=== PATIENT | female | born 1990 | race American Indian/Alaskan Native ===

== ENCOUNTER 2016-10-23 06:48 | Day surgery (SDC) | payer BC ==
[2016-10-23] MEDS ORDERED: NACL 0.9% 500 ML 500 ML IV SCH (08:00)
[2016-10-23] MEDS ORDERED: ATROPINE 0.1% (CARDIAC) ONE ×2 (08:30→08:31)
[2016-10-23] MEDS: NITROSTAT SL ONE ×2 (08:36→08:46)
--- NOTE | 2016-10-23 08:55 | Short Stay Summary ---
Short Stay Documentation Date of service: 10/23/16 - History H&P: obtained from office - Allergies and Medications Current Medications: Allergies No Known Allergies Allergy (Verified 09/06/15 09:17) Home Medications Medication Instructions Recorded Confirmed Last Taken Type Ibuprofen [Motrin 800 MG tab] 800 mg PO Q8HR PRN #30 tablet 09/06/15 Unknown Rx Acetaminophen with Codeine 1 each PO Q6HR PRN #12 tablet 04/07/16 Unknown Rx [Acetaminophen-Codeine #2 TAB] Sulfamethoxazole/Trimethoprim 1 each PO BID #28 tablet 04/07/16 Unknown Rx [Bactrim DS TAB] Active Medications Sodium Chloride (Nacl 0.9% 500 Ml) 500 mls @ 50 mls/hr IV DIRECT YAO - Physical exam General appearance: no acute distress Integumentary: no rash HEENT: Atraumatic Lungs: Clear to auscultation Breasts: deferred Heart: Regular rate Gastrointestinal: normal Female Genitourinary: deferred Rectal Exam: deferred Extremities: no ischemia Neurological: Normal gait - Brief post op/procedure progress note Date of procedure: 10/23/16 Pre-op diagnosis: Syncope Post-op diagnosis: same Procedure: Tilt table test Anesthesia: none Findings: Test was non-diagnostic. Patient insisted that she wants to be layed down before the time was up due to feeling of lightheadedness and nausea. She started to unstrap herself off the tilt table test. To prevent injury, we had to put her back down. Surgeon: ALYSSA ALCALA Estimated blood loss: none Pathology: none Condition: stable - Hospital course Hospital course: Uneventful - Disposition Condition at discharge: Good Disposition: DISCHARGED TO HOME OR SELFCARE Short Stay Discharge Plan Activity: advance as tolerated Weight Bearing Status: Full Weight Bearing Diet: regular Follow up with: PRIMARY CARE, [Primary Care Provider] - 7 Days
[2016-10-23 09:38] VITALS: BP 111/57
--- NOTE | 2016-10-23 10:01 | Procedure Note ---
TILT TABLE TEST INDICATION: Syncope. ORDERING PHYSICIAN: Seven Alfaro M.D. DESCRIPTION OF PROCEDURE: After obtaining written consent, the patient was brought to the blood bank laboratory technologist area. The patient was securely strapped to the tilt table test. Her supine blood pressure was 120/66 with a supine heart rate of 48 beats per minute. The patient was then tilted to 85 degrees from horizontal. Immediately after tilting, her blood pressure was 127/76 with a heart rate of 47 beats per minute. The patient was kept in this upright position for 10 minutes, at the end of which her blood pressure was 116/64 with a heart rate of 67 beats per minute. The patient was subsequently given 0.4 mg of sublingual nitroglycerin. The patient's heart rate gradually increased to 108 beats per minute, sinus tachycardia. The patient started complaining of feeling nauseous and lightheaded and insisted on being returned back to horizontal. The patient unfortunately started to unstrap herself from the tilt table test and we had to return her to a horizontal position in self protection and in order to avoid injury. The patient did not lose consciousness. The patient's maximum recorded heart rate was 108 beats per minute. The patient's last blood pressure recorded before she was tilted back to horizontal was 136/91. The patient was tilted back to horizontal. Her heart rate went back to baseline, which is 47 beats per minute. Her lowest recorded blood pressure was 89/52 which spontaneously recovered to 98/63. The patient did not lose consciousness during this procedure. A note is made that the patient PVCs were suppressed at the high heart rate. The patient did have several PVCs and bigemines. She did have fusion beats, as well as premature ventricular contractions. IMPRESSION: This is a nondiagnostic tilt table test. The patient insisted on moving back to a horizontal position after she started feeling lightheaded and nauseous. Her maximum recorded heart rate after nitroglycerin was 108 beats per minute. There was no evidence of sustained arrhythmias or bradycardias. The patient did, however, have multiple PVCs and bigeminies at rest that were suppressed at a higher heart rate. The patient's lowest recorded blood pressure was 89/52 and this was recorded after she was tilted back to horizontal and this is spontaneously recovered to 98/63. RECOMMENDATION: Follow up with referring fire boss. [facility]# [id number] TARIQ/JIMENA
== END 2016-10-23 10:00 | disposition home or self-care (01) ==
LOC: OPU 06:48
PROVIDERS: ATTEND Internal Medicine
DX: R55 Syncope and collapse (principal); I48.0 Paroxysmal atrial fibrillation
CPT/HCPCS: 36415; 81025; 84703; 93660; J0461; J7040

== ENCOUNTER 2016-10-29 02:01 | Emergency (ER) | payer BC ==
[2016-10-29 02:22] VITALS: BP 107/60
== END 2016-10-29 04:26 | disposition left against medical advice (07) ==
LOC: ED 02:01
DX: R55 Syncope and collapse (principal); D64.9 Anemia, unspecified; W18.30XA Fall on same level, unspecified, initial encounter; Y93.89 Activity, other specified; Y99.9 Unspecified external cause status; Y92.89 Other specified places as the place of occurrence of the external cause; Z53.21 Procedure and treatment not carried out due to patient leaving prior to being seen by health care provider
CPT/HCPCS: 93005; 93010

== ENCOUNTER 2016-10-30 02:28 | Emergency (ER) | payer BC ==
[2016-10-30 03:29] LABS: Basophils % (Auto) 0.7 % (0.0-1.8); Eosinophils % (Auto) 2.1 % (0.0-4.3); Hematocrit 37.5 % (30.3-42.9); Hemoglobin 12.6 gm/dl (10.1-14.3); Mean Corpuscular HGB Conc 34 % (30-34); Mean Corpuscular Hemoglobin 30 pg (28-32); Mean Corpuscular Volume 90 fl (79-97); Platelet Count 221 K/mm3 (140-440); Red Blood Count 4.16 M/mm3 (3.65-5.03); Red Cell Distribution Width 14.5 % (13.2-15.2); White Blood Count 6.5 K/mm3 (4.5-11.0)
[2016-10-30 03:51] LABS: Anion Gap 15 mmol/L; Blood Urea Nitrogen 10 mg/dL (7-17); Calcium 8.9 mg/dL (8.4-10.2); Carbon Dioxide 26 mmol/L (22-30); Chloride 102.7 mmol/L (98-107); Glucose 99 mg/dL (65-100); Potassium 3.8 mmol/L (3.6-5.0); Sodium 140 mmol/L (137-145)
[2016-10-30 04:27] LABS: Creatine Kinase MB 1.3 ng/mL (0.0-4.0)
[2016-10-30 04:29] LABS: Alanine Aminotransferase 26 units/L (7-56); Albumin 4.1 g/dL (3.9-5); Albumin/Globulin Ratio 1.6 %; Alkaline Phosphatase 69 units/L (35-129); Bilirubin,Total 0.4 mg/dL (0.1-1.2); Total Protein 6.6 g/dL (6.3-8.2)
[2016-10-30 04:44] LABS: Bilirubin,Direct < 0.2 mg/dL (0-0.2); Bilirubin,Indirect 0.2 mg/dL
[2016-10-30 05:24] LABS: Bacteria,Urine 1+ /HPF (Negative); Bilirubin,Urine NEG (Negative); Blood,Urine SM (Negative); Ketones,Urine TR mg/dL (Negative); Leukocyte Esterase,Urine MOD (Negative); Mucus,Urine 3+ /HPF; Nitrite,Urine NEG (Negative); Urobilinogen,Urine < 2.0 mg/dL (<2.0)
[2016-10-30] MEDS ORDERED: NACL 0.9% 1000 ML 1,000 ML IV ONE (10:04)
--- NOTE | 2016-10-30 10:09 | Emergency Department Report ---
ED Syncope HPI - General Chief Complaint: Syncope Stated Complaint: SYNCOPAL EPISODE Time Seen by Provider: 10/30/16 09:48 Source: patient, family Exam Limitations: no limitations - History of Present Illness Initial Comments: 26-year-old female presents to the emergency department after a syncopal episode. Patient states that she was sitting, watching TV at 1 AM when she began feeling lightheaded and subsequently lost consciousness. Family states the patient was unconscious for approximately 1 minute. At this time, patient denies complaints. She denies chest pain, palpitations, or difficulty breathing prior to passing out. Patient states this happened to her multiple times over the past couple of years. Family states that the episodes have become more frequent over the past month. Patient is being followed by [facility]. There are no other complaints. Timing/Prior Episodes: single episode today, recent history Precipitating Factors: Positive: lightheadedness Context: sitting Loss of Consciousness: prolonged (minutes) (1) Current Symptoms: back to normal - Related Data Allergies/Adverse Reactions: Allergies No Known Allergies Allergy (Verified 10/29/16 02:19) Home Medications: Ambulatory Orders Ibuprofen [Motrin 800 MG tab] 800 mg PO Q8HR PRN #30 tablet 09/06/15 Acetaminophen with Codeine [Acetaminophen-Codeine #2 TAB] 1 each PO Q6HR PRN # 12 tablet 04/07/16 Sulfamethoxazole/Trimethoprim [Bactrim DS TAB] 1 each PO BID #28 tablet ED Review of Systems ROS: Stated complaint: SYNCOPAL EPISODE Other details as noted in HPI Comment: All other systems reviewed and negative Cardiovascular: syncope ED Past Medical Hx - Past Medical History Previous Medical History?: Yes Hx Hypertension: No Hx Congestive Heart Failure: No Hx Diabetes: No Hx Deep Vein Thrombosis: No Hx Renal Disease: No Hx Sickle Cell Disease: No Hx Seizures: No Hx Asthma: No Hx COPD: No Hx HIV: No Additional medical history: Irregular heartbeat--a fib. bradycardia. anemia - Surgical History Past Surgical History?: No - Family History Family history: no significant - Social History Smoking Status: Never Smoker Substance Use Type: None - Medications Home Medications: Home Medications Medication Instructions Recorded Confirmed Last Taken Type Ibuprofen [Motrin 800 MG tab] 800 mg PO Q8HR PRN #30 tablet 09/06/15 Unknown Rx Acetaminophen with Codeine 1 each PO Q6HR PRN #12 tablet 04/07/16 Unknown Rx [Acetaminophen-Codeine #2 TAB] Sulfamethoxazole/Trimethoprim 1 each PO BID #28 tablet 04/07/16 Unknown Rx [Bactrim DS TAB] ED Physical Exam - General Limitations: No Limitations General appearance: alert, in no apparent distress - Head Head exam: Present: atraumatic, normocephalic - Eye Eye exam: Present: normal appearance, PERRL, EOMI - ENT ENT exam: Present: normal exam, normal orophraynx, mucous membranes moist - Neck Neck exam: Present: normal inspection, full ROM. Absent: tenderness - Respiratory Respiratory exam: Present: normal lung sounds bilaterally. Absent: respiratory distress - Cardiovascular Cardiovascular Exam: Present: normal rhythm, bradycardia, normal heart sounds - GI/Abdominal GI/Abdominal exam: Present: soft, normal bowel sounds. Absent: distended, tenderness - Extremities Exam Extremities exam: Present: normal inspection, full ROM. Absent: tenderness - Back Exam Back exam: Present: normal inspection, full ROM. Absent: tenderness - Neurological Exam Neurological exam: Present: alert, oriented X3. Absent: motor sensory deficit - Skin Skin exam: Present: warm, dry, intact ED Course Vital Signs 10/30/16 10/30/16 10/30/16 02:57 07:00 07:13 Temperature 97.8 F Pulse Rate 18 L 39 L Respiratory 18 16 14 Rate Blood Pressure Blood Pressure 106/53 99/62 [Right] O2 Sat by Pulse 100 98 Oximetry 10/30/16 10/30/16 10/30/16 07:21 07:30 07:41 Temperature Pulse Rate 41 L 44 L 42 L Respiratory 14 22 12 Rate Blood Pressure 83/43 99/57 99/57 Blood Pressure [Right] O2 Sat by Pulse 99 100 100 Oximetry 10/30/16 10/30/16 07:51 08:00 Temperature Pulse Rate 44 L 45 L Respiratory 14 14 Rate Blood Pressure 100/59 100/50 Blood Pressure [Right] O2 Sat by Pulse 100 99 Oximetry ED Medical Decision Making - Lab Data Result diagrams: 10/30/16 03:19 10/30/16 03:19 - EKG Data -: EKG Interpreted by Co EKG shows normal: sinus rhythm, axis, intervals, QRS complexes, ST-T waves Rate: bradycardia - EKG Data When compared to previous EKG there are: no significant change Interpretation: unchanged when compared t (03/26/2012), other (sinus bradycardia ) - Medical Decision Making Laboratory results reviewed and discussed with the patient. I have spoken with Dr. Gomez, cardiology. He has seen the patient in the emergency department. The plan is to hydrate the patient with IV fluids and then discharged home to follow-up as an outpatient. This was discussed with the family, who agree. - Differential Diagnosis syncope, arrhythmia Critical care attestation.: If time is entered above; I have spent that time in minutes in the direct care of this critically ill patient, excluding procedure time. ED Disposition Clinical Impression: Syncope and collapse Disposition: DISCHARGED TO HOME OR SELFCARE Is pt being admited?: No Condition: Stable Instructions: Syncope (ED) Referrals: PRIMARY CARE, [Primary Care Provider] - 3-5 Days Time of Disposition: 11:40
--- NOTE | 2016-10-30 11:26 | Consultation ---
History of Present Illness Consult date: 10/30/16 Consult reason: syncope History of present illness: This is a 26yr old female who presents to the ED with recurrent syncope. Her presenting ECG shows a sinus bradycardia, rate 46. No arrhythmias noted. Noted hypotensive in the ED with a systolic BP of 83. She has no chest pain or shortness of breath. She denies palpitations. Cardiac consultation requested. Patient is [facility] to [facility]. Prior echocardiogram reveals a dilated LV with mildly depressed EF 45-50%. A week ago she had an outpatient tilt table test that was aborted due to patient complaint of nausea. At that time patient insisted to stop the test. She is now planned for an outpatient cardiac MRI. Medications and Allergies Allergies Allergy/AdvReac Type Severity Reaction Status Date / Time No Known Allergies Allergy Verified 10/29/16 02:19 Home Medications Medication Instructions Recorded Confirmed Last Taken Type Ibuprofen [Motrin 800 MG tab] 800 mg PO Q8HR PRN #30 tablet 09/06/15 Unknown Rx Acetaminophen with Codeine 1 each PO Q6HR PRN #12 tablet 04/07/16 Unknown Rx [Acetaminophen-Codeine #2 TAB] Sulfamethoxazole/Trimethoprim 1 each PO BID #28 tablet 04/07/16 Unknown Rx [Bactrim DS TAB] Physical Examination Vital Signs Temp Pulse Resp BP Pulse Ox 97.8 F 18 L 18 106/53 100 10/30/16 02:57 10/30/16 02:57 10/30/16 02:57 10/30/16 02:57 10/30/16 02:57 General appearance: no acute distress HEENT: Positive: PERRL Neck: Positive: trachea midline Cardiac: Positive: Bradycardia Results 10/30/16 03:19 10/30/16 03:19 Cardiac Enzymes 10/30/16 10/30/16 Range/Units 03:40 03:40 AST 21 (5-40) units/L CK-MB (CK-2) 1.3 (0.0-4.0) ng/mL CBC 10/30/16 Range/Units 03:19 WBC 6.5 (4.5-11.0) K/mm3 RBC 4.16 (3.65-5.03) M/mm3 Hgb 12.6 (10.1-14.3) gm/dl Hct 37.5 (30.3-42.9) % Plt Count 221 (140-440) K/mm3 Lymph # 1.6 (1.2-5.4) K/mm3 [place] # 0.5 (0.0-0.8) K/mm3 Eos # 0.1 (0.0-0.4) K/mm3 Baso # 0.0 (0.0-0.1) K/mm3 Comprehensive Metabolic Panel 10/30/16 10/30/16 Range/Units 03:19 03:40 Sodium 140 (137-145) mmol/L Potassium 3.8 (3.6-5.0) mmol/L Chloride 102.7 (98-107) mmol/L Carbon Dioxide 26 (22-30) mmol/L BUN 10 (7-17) mg/dL Creatinine 0.8 (0.7-1.2) mg/dL Glucose 99 (65-100) mg/dL Calcium 8.9 (8.4-10.2) mg/dL Direct Bilirubin < 0.2 (0-0.2) mg/dL Indirect Bilirubin 0.2 mg/dL AST 21 (5-40) units/L ALT 26 (7-56) units/L Alkaline Phosphatase 69 (35-129) units/L Total Protein 6.6 (6.3-8.2) g/dL Albumin 4.1 (3.9-5) g/dL EKG interpretations - EKG Sinus rhythms and dysrhythmias: sinus bradycardia Assessment and Plan Recurrent syncope Hypotension Sinus bradycardia Prior echocardiogram reveals a dilated LV with mildly depressed EF 45-50%. Recommendations: IV hydration. Outpatient cardiac MRI as scheduled. Ok for discharge home. Advised not to drive. F/U with Dr Alfaro as scheduled.
[2016-10-30 12:05] VITALS: BP 90/33
== END 2016-10-30 12:06 | disposition home or self-care (01) ==
LOC: ED 02:28
DX: R55 Syncope and collapse (principal)
CPT/HCPCS: 36415; 80048; 80074; 81001; 82550; 82553; 84484; 84703; 85025; 96360; 99284; J7030

== ENCOUNTER 2016-12-11 13:09 | Inpatient (IN) | payer BC ==
[2016-12-11] MEDS ORDERED: NACL 0.9% 1000 ML 1,000 ML IV ONE ×2 (13:15→15:04)
[2016-12-11] MEDS ORDERED: KEPPRA 1,000 MG/NS 0.75% 100ML 1,000 MG/100 ML BAG IV ONE (13:22)
--- NOTE | 2016-12-11 13:29 | Emergency Department Report ---
HPI - General Chief Complaint: Altered Mental Status Time Seen by Provider: 12/11/16 13:13 - HPI HPI: Room 20 The patient is a 26-year-old female presenting with a chief complaint of altered mental status. EMS reports the patient went to her cardiology appointment earlier today without incident. The patient returned home and the mother heard the patient fall bathroom. EMS reports that the mother heard snoring respirations from inside the bathroom so the mother broke the door down to gain entry. The patient was unresponsive per EMS. EMS states when they arrived and began transporting the patient she became combative so Haldol 5 mg IM and Benadryl was administered. During transport EMS reports the patient appeared to stiffen and her eyes exhibited a rightward gaze with nystagmus so there was concern for seizure activity. EMS states that admission 2 mg of Ativan IV at that time. EMS states patient has been nonverbal but combative during her transport. In the ED the patient is intermittently combative and nonverbal Location: Mental status Duration: [see above] Quality: Altered Severity: Moderate Modifying factors: [see above] Context: [see above] Mode of transportation: [not driving] ED Past Medical Hx - Past Medical History Additional medical history: Irregular heartbeat--a fib. bradycardia. anemia - Surgical History Past Surgical History?: No - Family History Family history: no significant - Social History Smoking Status: Unknown if ever smoked - Medications Home Medications: Home Medications Medication Instructions Recorded Confirmed Last Taken Type Ibuprofen [Motrin 800 MG tab] 800 mg PO Q8HR PRN #30 tablet 09/06/15 Unknown Rx Acetaminophen with Codeine 1 each PO Q6HR PRN #12 tablet 04/07/16 Unknown Rx [Acetaminophen-Codeine #2 TAB] Sulfamethoxazole/Trimethoprim 1 each PO BID #28 tablet 04/07/16 Unknown Rx [Bactrim DS TAB] ED Review of Systems ROS: Stated complaint: CONSUELO Other details as noted in HPI Comment: Unobtainable due to pts medical conditions Physical Exam - Physical Exam Vital Signs: Vital Signs 12/11/16 13:13 Pulse Rate 101 H Respiratory 26 H Rate O2 Sat by Pulse 100 Oximetry Physical Exam: GENERAL: The patient is well-developed well-nourished female appearing confused and combative requiring restraints on stretcher. [] HEENT: Normocephalic. Atraumatic. Pupils 4-2 mm bilaterally. Patient has moist mucous membranes. NECK: Supple. Trachea midline CHEST/LUNGS: Clear to auscultation. There is no respiratory distress noted. HEART/CARDIOVASCULAR: Regular. There is tachycardia. There is no gallop rub or murmur. ABDOMEN: Abdomen is soft, nontender. Patient has normal bowel sounds. There is no abdominal distention. SKIN: There is no rash. There is no edema. There is no diaphoresis. NEURO: The patient is combative and nonverbal. The patient appears she may potentially be postictal. Moves all extremities well MUSCULOSKELETAL: There is no evidence of acute injury. ED Course Vital Signs 12/11/16 13:13 Pulse Rate 101 H Respiratory 26 H Rate O2 Sat by Pulse 100 Oximetry ED Medical Decision Making - Lab Data Result diagrams: 12/11/16 15:20 12/11/16 13:14 Laboratory Tests 12/11/16 12/11/16 12/11/16 13:14 13:14 13:15 WBC RBC Hgb Hct MCV MCH MCHC RDW Plt Count Lymph % (Auto) [place] % (Auto) Eos % (Auto) Baso % (Auto) Lymph # [place] # Eos # Baso # Seg Neutrophils % Seg Neutrophils # PT INR APTT Chloride 101.6 Carbon Dioxide 13 L Anion Gap 30 BUN 12 Creatinine 1.1 Estimated GFR > 60 BUN/Creatinine Ratio 10.90 Glucose 220 H Calcium 8.8 Magnesium 1.90 Total Bilirubin 0.90 AST 143 H ALT 82 H Alkaline Phosphatase 74 Total Creatine Kinase 588 H CK-MB (CK-2) 4.4 H CK-MB (CK-2) Rel Index 0.7 Troponin T < 0.010 Total Protein 6.9 Albumin 4.2 Albumin/Globulin Ratio 1.6 TSH Free T4 HCG, Qual Urine Color Urine Turbidity Urine pH Ur Specific [place] Urine Protein Urine Glucose (UA) Urine Ketones Urine Blood Urine Nitrite Urine Bilirubin Urine Urobilinogen Ur Leukocyte Esterase Urine WBC (Auto) Urine RBC (Auto) U Epithel Cells (Auto) Urine Bacteria (Auto) Urine Mucus Urine Opiates Screen Urine Methadone Screen Ur Barbiturates Screen Ur Phencyclidine Scrn Ur Amphetamines Screen U Benzodiazepines Scrn Urine Cocaine Screen U Marijuana (THC) Screen Drugs of Abuse Note Plasma/Serum Alcohol < 0.01 12/11/16 12/11/16 12/11/16 13:37 13:37 13:50 WBC RBC Hgb Hct MCV MCH MCHC RDW Plt Count Lymph % (Auto) [place] % (Auto) Eos % (Auto) Baso % (Auto) Lymph # [place] # Eos # Baso # Seg Neutrophils % Seg Neutrophils # PT INR APTT Chloride Carbon Dioxide Anion Gap BUN Creatinine Estimated GFR BUN/Creatinine Ratio Glucose Calcium Magnesium Total Bilirubin AST ALT Alkaline Phosphatase Total Creatine Kinase CK-MB (CK-2) CK-MB (CK-2) Rel Index Troponin T Total Protein Albumin Albumin/Globulin Ratio TSH 1.520 Free T4 1.15 HCG, Qual Urine Color Yellow Urine Turbidity Slightly-cloudy Urine pH 6.0 Ur Specific [place] 1.020 Urine Protein >500 Urine Glucose (UA) 50 Urine Ketones Tr Urine Blood Sm Urine Nitrite Neg Urine Bilirubin Neg Urine Urobilinogen 2.0 Ur Leukocyte Esterase Neg Urine WBC (Auto) 26.0 H Urine RBC (Auto) 11.0 U Epithel Cells (Auto) 5.0 Urine Bacteria (Auto) 1+ Urine Mucus 2+ Urine Opiates Screen Presumptive negative Urine Methadone Screen Presumptive negative Ur Barbiturates Screen Presumptive negative Ur Phencyclidine Scrn Presumptive negative Ur Amphetamines Screen Presumptive negative U Benzodiazepines Scrn Presumptive negative Urine Cocaine Screen Presumptive negative U Marijuana (THC) Screen Presumptive positive Drugs of Abuse Note Disclamer Plasma/Serum Alcohol 12/11/16 12/11/16 12/11/16 13:50 15:20 15:20 WBC 10.3 RBC 3.61 L Hgb 11.5 Hct 32.5 MCV 90 MCH 32 MCHC 35 H RDW 14.4 Plt Count 206 Lymph % (Auto) 7.2 L [place] % (Auto) 5.9 Eos % (Auto) 0.2 Baso % (Auto) 0.3 Lymph # 0.7 L [place] # 0.6 Eos # 0.0 Baso # 0.0 Seg Neutrophils % 86.4 H Seg Neutrophils # 8.9 H PT 14.4 INR 1.13 APTT < 20.0 L Chloride Carbon Dioxide Anion Gap BUN Creatinine Estimated GFR BUN/Creatinine Ratio Glucose Calcium Magnesium Total Bilirubin AST ALT Alkaline Phosphatase Total Creatine Kinase CK-MB (CK-2) CK-MB (CK-2) Rel Index Troponin T Total Protein Albumin Albumin/Globulin Ratio TSH Free T4 HCG, Qual Negative Urine Color Urine Turbidity Urine pH Ur Specific [place] Urine Protein Urine Glucose (UA) Urine Ketones Urine Blood Urine Nitrite Urine Bilirubin Urine Urobilinogen Ur Leukocyte Esterase Urine WBC (Auto) Urine RBC (Auto) U Epithel Cells (Auto) Urine Bacteria (Auto) Urine Mucus Urine Opiates Screen Urine Methadone Screen Ur Barbiturates Screen Ur Phencyclidine Scrn Ur Amphetamines Screen U Benzodiazepines Scrn Urine Cocaine Screen U Marijuana (THC) Screen Drugs of Abuse Note Plasma/Serum Alcohol Sodium 141, potassium 3.1 - EKG Data -: EKG Interpreted by Me EKG shows normal: sinus rhythm Rate: normal - EKG Data When compared to previous EKG there are: previous EKG unavailable Interpretation: nonspecific ST-T wave fariha (T-wave inversion in lead aVL, V4, V5 , V2) - Radiology Data Radiology results: report reviewed (CT head), image reviewed (CT head) CT head (read by radiologist)-no intracranial abnormalities. Chronic right maxillary sinus disease partially imaged - Differential Diagnosis seizure, intracranial hemorrhage, Critical care attestation.: If time is entered above; I have spent that time in minutes in the direct care of this critically ill patient, excluding procedure time. ED Disposition Clinical Impression: Altered mental status, Hypokalemia Disposition: OP ADMITTED IP TO THIS HOSP Is pt being admited?: Yes Does the pt Need Aspirin: Yes Condition: Fair Referrals: PRIMARY CARE, [Primary Care Provider] - 3-5 Days Time of Disposition: 15:50 (hospitalist paged)
--- NOTE | 2016-12-11 13:31 | Admit Criteria Form ---
Admission Criteria Documentation: MENTAL STATUS CHANGE Clinical Indications for Inpatient Care (Place 'X' for any and all applicable criteria): Ongoing inpatient care may be needed for 1 or more of the following(1)(2)(3)(5)( 6): [X ]I. Suspected serious etiology (eg, medical disorder, PHYSICAL THERAPIST CENTER MANAGER event) of altered mental status [ ]II. Danger to self or others not manageable at lower level of care [ ]III. Grave disability (eg, inability to perform self care necessary at lower level of care) [ ]IV. Agitation or inappropriate behavior interfering with care for primary condition (eg, attempting to discontinue lines or drains prematurely, unable to cooperate with respiratory care) [ ]V. Delirium [A] [D][E] as described by 1 or more of the following(26): [ ]a) Delirium due to alcohol or sedative [F] withdrawal [ ]b) Delirium of uncertain etiology that has not responded to appropriate empiric treatment [ ]c) Delirium that prevents performance of a life-sustaining function (eg, feeding or hydrating oneself) [ ]. General contraindications and/or Inappropriate clinical situations for Observational Care in patients with Mental Status Change, when ANY ONE of the following is required: [ ]a) Prediction of prolongation of LOS based on ANY ONE of the following may be considered as a contraindication for observational care 2, 3, 4, 5, 6, 7, 8, 9, 10, 11 [ ]i) Age > 65 yrs. [ ]ii) Patient arriving by ambulance [ ]iii) Patient with high acuity [ ]iv) Patient requiring vital sign monitoring [ ]v) Patient on IV medication [ ]b) Systolic blood pressures greater than or equal to 180mmHg 3, 12 [ ]c) Patient with altered mental status including delirium and other alteration of consciousness, (3) [ ]d) Patient whose discharge disposition will be to a intermediate home or rehabilitation home should not be managed in Emergency Department Observation Unit. CMS rule requires 3 days hospital stay before such placement.3,13 [ ]e) Patient with failure to thrive due to broad array of etiologies 3,16,17 [ ]f) Inability to ambulate 3,14 Extended stay beyond goal length of stay for the primary condition may be needed until ALL of the following are present(3)(5): [ ]a) Underlying medical etiology of mental status change is absent, or has been established and adequately treated [ ]b) Danger to self or others is absent or manageable at lower level of care. [ ]c) Behavior crisis management, including physical or chemical restraints, is not required or available at lower level of car [ ]d) Substance or alcohol withdrawal is absent or manageable at lower level of care. [ ]e) Behavioral symptoms (eg, agitation, somnolence, inappropriate behavior) are absent, or are manageable at lower level of care. The original [facility] [employer] content created by [facility] [employer] has been revised. The portions of the content which have been revised are identified through the use of italic text or in bold, and [facility] has neither reviewed nor approved the modified material. All other unmodified content is copyright [facility] [employer]. Please see references footnoted in the original [facility] edition 2016 Admission Criteria Met: Yes
[2016-12-11] MEDS ORDERED: AMIDATE IV ONE ×2 (13:43)
[2016-12-11 13:50] LABS: Urine Drugs of Abuse Note Disclamer
[2016-12-11 14:08] LABS: Bacteria,Urine 1+ /HPF (Negative); Bilirubin,Urine NEG (Negative); Blood,Urine SM (Negative); Ketones,Urine TR mg/dL (Negative); Leukocyte Esterase,Urine NEG (Negative); Mucus,Urine 2+ /HPF; Nitrite,Urine NEG (Negative)
[2016-12-11 14:11] LABS: Protein,Urine >500 mg/dL (Negative)
[2016-12-11 14:31] LABS: Creatine Kinase MB 4.4 ng/mL (0.0-4.0)
[2016-12-11 14:32] LABS: Alanine Aminotransferase 82 units/L (7-56); Albumin 4.2 g/dL (3.9-5); Albumin/Globulin Ratio 1.6 %; Alkaline Phosphatase 74 units/L (35-129); Anion Gap 30 mmol/L; Blood Urea Nitrogen 12 mg/dL (7-17); Calcium 8.8 mg/dL (8.4-10.2); Carbon Dioxide 13 mmol/L (22-30); Chloride 101.6 mmol/L (98-107); Creatine Kinase 588 units/L (30-135); Glucose 220 mg/dL (65-100); Potassium 3.1 mmol/L (3.6-5.0); Sodium 141 mmol/L (137-145); Total Protein 6.9 g/dL (6.3-8.2)
--- NOTE | 2016-12-11 14:57 | Cat Scan Report ---
Cranial CT without contrast. History: Altered mental status. Findings: The brain parenchyma is normal. There is no evidence of hemorrhage, infarct, mass, or extra-axial collection. The posterior fossa is normal. The ventricles are normal in size and contour. The calvarium is intact. There is mucoperiosteal thickening in the visualized portion of the right maxillary sinus. Impression: 1. No intracranial abnormalities. 2. Chronic right maxillary sinus disease, partially imaged.
[2016-12-11 15:33] LABS: Basophils % (Auto) 0.3 % (0.0-1.8); Eosinophils % (Auto) 0.2 % (0.0-4.3); Hematocrit 32.5 % (30.3-42.9); Hemoglobin 11.5 gm/dl (10.1-14.3); Mean Corpuscular HGB Conc 35 % (30-34); Mean Corpuscular Hemoglobin 32 pg (28-32); Mean Corpuscular Volume 90 fl (79-97); Platelet Count 206 K/mm3 (140-440); Red Blood Count 3.61 M/mm3 (3.65-5.03); Red Cell Distribution Width 14.4 % (13.2-15.2); White Blood Count 10.3 K/mm3 (4.5-11.0)
[2016-12-11 15:41] LABS: INR 1.13 (0.87-1.13)
[2016-12-11 15:42] LABS: Partial Thromboplastin Time < 20.0 Sec. (24.2-36.6)
[2016-12-11] MEDS ORDERED: DULCOLAX PR PRN (22:22)
[2016-12-11] MEDS ORDERED: TYLENOL PO PRN (22:22)
[2016-12-11] MEDS ORDERED: MILK OF MAGNESIA PO PRN (22:22)
[2016-12-11] MEDS ORDERED: DILAUDID IV PRN (22:22)
[2016-12-11] MEDS ORDERED: ZOFRAN IV PRN (22:22)
--- NOTE | 2016-12-11 22:30 | Event Note ---
Date: 12/11/16 See H/p in reports AMS New onset Seizure disorder??? Recurrent Syncope UTI Marijuana use/dependence Withdrawal symptoms?// Transaminitis-R/o Hepatitis
[2016-12-11] MEDS ORDERED: HALDOL IV PRN (22:49)
[2016-12-11] MEDS ORDERED: ATIVAN IV PRN ×2 (22:49)
[2016-12-11] MEDS: KEPPRA 750 MG in D5W 100 ML IV SCH (23:04)
--- NOTE | 2016-12-12 00:27 | History and Physical Report ---
CHIEF COMPLAINT: 1. Altered mental status. 2. Possible seizures. HISTORY OF PRESENT ILLNESS: A 26-year-old female brought in for severe altered mental status. The patient has been going to a Cardiology appointment because of recurrent syncope for the last one year, had four to five episodes. The patient apparently falls down, collapses, and then wakes up. At this event, the patient fell in the bathroom and mother heard her snoring. The mother broke down the door and to gain entry. EMS was called. As per EMS, the patient was unresponsive. While transporting, the patient became combative and Haldol and Benadryl were given. The patient also appeared to sniffle and exhibited a rightward gaze and nystagmus. So, there was concern for seizure activity. No tongue biting. EMS has given 2 mg of IV Ativan at that time. The patient has been nonverbal and combative during the transport with EMS. Previous episodes used to be the syncope and collapse followed by immediate recovery. No chest pain. No tongue biting. PAST MEDICAL HISTORY: Significant for atrial fibrillation versus bradycardia and anemia. PAST SURGICAL HISTORY: None. FAMILY HISTORY: Not significant. SOCIAL HISTORY: No hypertension and no diabetes. SOCIAL HISTORY: Does not smoke. No alcohol, no recreational drugs. CURRENT MEDICATIONS: Bactrim-DS b.i.d., Tylenol with Codeine No. 2 q.6 p.r.n., ibuprofen 800 mg q. 8 hours p.r.n. REVIEW OF SYSTEMS: CONSTITUTIONAL: No weight loss, no weight gain, no fever, no chills. HEENT: No sore throat. No postnasal drip. CARDIOVASCULAR AND RESPIRATORY: No shortness of breath. No chest pain, no palpitations. GASTROINTESTINAL: No nausea, no vomiting, no diarrhea. GENITOURINARY: No dysuria, no flank pain. MUSCULOSKELETAL: No joint pains. No muscle pains. CENTRAL NERVOUS SYSTEM: Recurrent syncope 4-5 times in the last 1 year. No noted seizure activity. Today, the patient may have had seizure activity. SKIN: No rashes. PSYCHIATRIC: No depression, anxiety. HEMATOLOGIC/LYMPHATIC: No bruising, no lymphedema. A 14-point review of systems done. PHYSICAL EXAMINATION: GENERAL: On examination, a young female who is lethargic, altered sensorium, answers questions with deep stimulation. VITAL SIGNS: Blood pressure is 92/45, pulse is 55, temperature 99.2, pulse ox is 100, respiratory rate is 16. HEENT: Unremarkable. Pupils equal and reactive. NECK: Supple, no lymphadenopathy, no thyromegaly. LUNGS: Clear to auscultation and percussion. Good air entry. CARDIOVASCULAR: S1, S2 heard. No gallop, no murmur, no rub. Apical impulse in the left fifth intercostal space and midclavicular line. ABDOMEN: Soft and benign. No hepatosplenomegaly. No guarding, no rigidity. Hernial orifices are normal. EXTREMITIES: Good pedal pulses. No pedal edema. CENTRAL NERVOUS SYSTEM: Alert at the time of my examination. Slightly combative. Otherwise alert and oriented. SKIN: Normal. LABORATORY DATA: EKG shows T-wave inversions in lead aVL, V4, V5. Nonspecific ST-T wave changes and sinus bradycardia with heart rate of about [address] of the head was negative. Labs significant for white count of 10,300, hemoglobin 11.5, hematocrit of 32.5, platelet count of 206,000. Protime is normal. Glucose is 220, slightly high, AST is 143, ALT is 82, bicarbonate is 13. CK-MB is 4.4. Urine shows white blood cells of 26. ASSESSMENT AND PLAN: 1. New onset seizure disorder, highly possible given the patient's altered sensorium for a prolong time. The patient may have been postictal. The patient was started on IV Keppra, but we will defer to Neurology. Neurology Dr. Conrad consulted. The patient may end up needing EEG for seizure activity. 2. Recurrent syncope. Syncope workup with echocardiogram and carotid duplex scan ordered. The patient on telemetry. Also, echocardiogram to rule out hypertrophic cardiomyopathy. Also, carotid duplex scan to rule out any carotid artery stenosis, congenital carotid stenosis etc. 3. Urinary tract infection. The patient was started on Rocephin 2 g IV q.24. 4. Transaminitis. The patient's AST and ALT. We will recheck acute hepatitis profile. 5. Hypoglycemia, not a known diabetic, we will follow up on glucose levels and also A1c ordered. 6. Deep venous thrombosis prophylaxis, Lovenox 40 mg subcutaneous daily. DRUG ABUSE: 1. The patient is positive for marijuana that may be the cause of her other symptoms. 2. The patient to be counseled about marijuana. 3. Marijuana use. Unsure about marijuana may be the precipitating factor. JOB# [id number] GWENDOLYN/JIMENA RYAN
[2016-12-12] MEDS: KEPPRA 750 MG in D5W 100 ML IV SCH ×3 (01:34→21:15)
[2016-12-12] MEDS: D5NS 1,000 ML IV SCH (01:35)
[2016-12-12] MEDS: PEPCID PO SCH ×2 (10:55→21:15)
[2016-12-12] MEDS: LOVENOX SUB-Q SCH (10:55)
[2016-12-12] MEDS: ROCEPHIN/NS 2 GM/100 ML 2 GM/100 ML BAG IV SCH (10:55)
--- NOTE | 2016-12-12 13:54 | Consultation ---
History of Present Illness Consult date: 12/12/16 Requesting physician: MILAGRO LAZAR Reason for Consult: ? 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 She was altered to mother's eval and called EMS. EMS reports that the mother heard snoring respirations from inside the bathroom so the mother broke the door down to gain entry. The patient was unresponsive per EMS. EMS states when they arrived and began transporting the patient she became combative so Haldol 5 mg IM and Benadryl was administered. During transport EMS reports the patient appeared to stiffen and her eyes exhibited a rightward gaze with nystagmus so there was concern for seizure activity. EMS states that admission 2 mg of Ativan IV at that time. EMS states patient has been nonverbal but combative during her transport. In the ED the patient was intermittently combative and nonverbal. She is back to her baseline today. Her many prior episodes of LOC have never had convulsion. She may have bite her tongue on this occasion. There was bloody fluid in the toilet. Duration of convulsion unclear. There were no clear aggravating, relieving or temporal factors. Severity such to cause LOC. Past History Past Medical History: other (recurrent syncope) Past Surgical History: No surgical history Social history: single, lives with family, smoking (THC). denies: alcohol abuse , prescription drug abuse, IV drug use Family history: no significant family history Medications and Allergies Allergies Allergy/AdvReac Type Severity Reaction Status Date / Time No Known Allergies Allergy Verified 10/29/16 02:19 Home Medications Medication Instructions Recorded Confirmed Last Taken Type No Known Home Medications [No 12/11/16 12/11/16 Unknown History Reported Home Medications] Active Meds: Active Medications Acetaminophen (Tylenol) 650 mg PO Q4H PRN PRN Reason: Pain MILD(1-3)/Fever >100.5/DRIVER Bisacodyl (Dulcolax) 10 mg LA QDAY PRN PRN Reason: Constipation unrelieved by MOM Enoxaparin Sodium (Lovenox) 40 mg SUB-Q QDAY [facility] Last Admin: 12/12/16 10:55 Dose: 40 mg Famotidine (Pepcid) 20 mg PO BID [facility] Last Admin: 12/12/16 10:55 Dose: 20 mg Haloperidol Lactate (Haldol) 5 mg IV Q1H PRN PRN Reason: Unrespon. to mult. doses BZD's Hydromorphone HCl (Dilaudid) 0.5 mg IV Q3H PRN PRN Reason: Pain , Severe (7-10) Dextrose/Sodium Chloride (D5ns) 1,000 mls @ 100 mls/hr IV DIRECT [facility] Last Admin: 12/12/16 01:35 Dose: 100 mls/hr Ceftriaxone Sodium (Rocephin/Ns 2 Gm/100 Ml) 2 gm in 100 mls @ 200 mls/hr IV Q24HR [facility] PRN Reason: Protocol Last Admin: 12/12/16 10:55 Dose: 200 mls/hr Levetiracetam 750 mg/ Dextrose 107.5 mls @ 400 mls/hr IV Q12HR [facility] Last Admin: 12/12/16 11:02 Dose: 100 mls/hr Sodium Chloride (Nacl 0.9% 500 Ml) 500 mls @ 999 mls/hr IV ONCE ONE Stop: 12/12/16 13:58 Lorazepam (Ativan) 2 mg IV Q1H PRN PRN Reason: CIWA-Ar 8-15 Lorazepam (Ativan) 4 mg IV Q1H PRN PRN Reason: CIWA-Ar 16-25 Magnesium Hydroxide (Milk Of Magnesia) 30 ml PO Q4H PRN PRN Reason: Constipation Ondansetron HCl (Zofran) 4 mg IV Q8H PRN PRN Reason: N/V unrelieved by Reglan Oxycodone/Acetaminophen (Percocet 5/325) 1 tab PO Q6H PRN PRN Reason: Pain, Moderate (4-6) Review of Systems All systems: negative Constitutional: fatigue Cardiovascular: lightheadedness, no chest pain Neurological: syncope, no paralysis, no weakness, no parathesias, no numbness, no tingling, no seizures, no ataxia, no lack of coordination, no headaches, no aphasia, no change in speech, no change in mentation, no confusion, no balance difficulties, no gait dysfunction, no motor disturbance, no sensory deficit, no double vision Physical Examination - Vital Signs Vital Signs: Vital Signs Pulse Resp Pulse Ox 101 H 26 H 100 12/11/16 13:13 12/11/16 13:13 12/11/16 13:13 - Constitutional General appearance: comfortable - EENT EENT: Present: ATNC, PERRL, mucous membranes moist, hearing intact, vision intact - Respiratory Respiratory: Present: chest non-tender, normal breath sounds, no respiratory distress - Cardiovascular Cardiovascular: Present: regular rate Extremities: Present: no peripheral edema bilatateraly, no clubbing, cyanosis, no inflammation, no ischemia or petechiae - Gastrointestinal Gastrointestinal: Present: normoactive bowel sounds, soft, non-distended - Integumentary Integumentary: Present: normal - Neurologic Cranial nerve examination: PERRL, EOMI, VFF, V1/V2/V3 grossly intact, face symmetric, tongue midline, intact, intact shoulder shrug, Intact Vestibulo- ocular r, intact corneal reflex, normal palatal elevation Speech examination: intact Sensorimotor examination: intact Detailed motor examination: full strength in all sammy Motor examination - right side: 5/5: biceps, triceps, wrist flexion, wrist extension, plaster maker, hip flexors, knee extensors, dorsiflexion, toe extension (EHL) , plantarflexion Motor examination - left side: 5/5: biceps, triceps, wrist flexion, wrist extension, plaster maker, hip flexors, knee extensors, dorsiflexion, toe extension (EHL) , plantarflexion Detailed sensory examination: intact Reflex and gait examination: intact Reflexes: 2+: ankle, bicep, knee, tricep - Musculoskeletal Musculoskeletal: Present: no fluid collection, no pain, normal range of motion - Psychiatric Psychiatric: Present: mood/affect appropriate, cooperative Results - Laboratory Findings CBC and BMP: 12/11/16 15:20 12/11/16 13:14 Assessment and Plan 26 YO F Hx recurrent syncope thought to be CV in origin as classic presyncopal syndrome but who p/w episode of LOC while on toilet 12/11 @ 12:30 PM assoc w/ some AMS and motor convulsive activity w/ tongue bite suggestive of possible seizure. Pt has no seizure risk factors otherwise. Neuro exam nonfocal intact w /o deficits. CTH neg. CDs neg. Plan and Recommendation: 1. Telemetry bed w/ Q4 hour neuro checks & Sz precautions 2. Brain imaging: MRI Brain +/- Robbie Seizure Protocol 3. Routine awake and drowsy EEG 4. Labs: Serum/Urine Tox, UA/UCx, Electrolytes especially Na, Ca, Mg, and Glucose, TSH/Vit B12/Ammonia and correct as necessary 5. Cont Infectious work up/medical management for UTI, PNA, cellulitis, bacteremia, etc. 6. Avoid hyponatremia, hypo/hyper-calcemia, hypo/hyperglycemia, acidosis, hypoxia/hypoxemia, hypercarbia/hypercapnia 7. Avoid institution of any psychoactive medications (e.g. antihistamines, anticholinergics, BZD, hypnotics, opiates) as able unless low doses of low potency antipsychotic needed for behavioral issues complicating medical care 8. AED therapy: can continue Keppra 750mg BID for now as already started 9. Avoid meds that can lower sz threshold e.g. Tramadol, fluroquinolones, carbapenems 10. Pt advised of [place] driving regulations: report date of presumed Seizure/ unexplained loss of consciousness/awareness spell to DMV, refrain from operating a motor vehicle for 6 months after this date, and avoid unsupervised activity particularly around water or heights
[2016-12-12] MEDS ORDERED: NACL 0.9% 500 ML 500 ML IV ONE (14:00)
--- NOTE | 2016-12-12 15:51 | Consultation ---
History of Present Illness Consult date: 12/12/16 Consult reason: syncope History of present illness: This is a 26yr old female who was found unresponsive, foaming of the mouth in the bathroom by her mother. EMS was called. It's reported during transport, the patient appeared to stiffen and her eyes exhibited a rightward gaze with nystagmus so there was concern for seizure activity. A cardiac consultation is requested for suspected syncope. Her presenting ECG shows a sinus rhythm with nonspecific twave abnormalities. No arrhythmias seen on telemetry. Patient appears comfortable. She denies dizziness. She denies chest pain and shortness of breath. Past History Past Medical History: other (recurrent syncope) Past Surgical History: No surgical history Social history: single, lives with family, smoking (THC). denies: alcohol abuse , prescription drug abuse, IV drug use Family history: no significant family history Medications and Allergies Allergies Allergy/AdvReac Type Severity Reaction Status Date / Time No Known Allergies Allergy Verified 10/29/16 02:19 Home Medications Medication Instructions Recorded Confirmed Last Taken Type No Known Home Medications [No 12/11/16 12/11/16 Unknown History Reported Home Medications] Active Meds: Active Medications Acetaminophen (Tylenol) 650 mg PO Q4H PRN PRN Reason: Pain MILD(1-3)/Fever >100.5/DRIVER Bisacodyl (Dulcolax) 10 mg [place] QDAY PRN PRN Reason: Constipation unrelieved by MOM Enoxaparin Sodium (Lovenox) 40 mg SUB-Q QDAY [facility] Last Admin: 12/12/16 10:55 Dose: 40 mg Famotidine (Pepcid) 20 mg PO BID [facility] Last Admin: 12/12/16 10:55 Dose: 20 mg Haloperidol Lactate (Haldol) 5 mg IV Q1H PRN PRN Reason: Unrespon. to mult. doses BZD's Hydromorphone HCl (Dilaudid) 0.5 mg IV Q3H PRN PRN Reason: Pain , Severe (7-10) Dextrose/Sodium Chloride (D5ns) 1,000 mls @ 100 mls/hr IV DIRECT [facility] Last Admin: 12/12/16 01:35 Dose: 100 mls/hr Ceftriaxone Sodium (Rocephin/Ns 2 Gm/100 Ml) 2 gm in 100 mls @ 200 mls/hr IV Q24HR [facility] PRN Reason: Protocol Last Admin: 12/12/16 10:55 Dose: 200 mls/hr Levetiracetam 750 mg/ Dextrose 107.5 mls @ 400 mls/hr IV Q12HR [facility] Last Admin: 12/12/16 11:02 Dose: 100 mls/hr Lidocaine HCl (Lidocaine Viscous 2%) 15 ml PO Q8HR PRN PRN Reason: Mouth Pain Lorazepam (Ativan) 2 mg IV Q1H PRN PRN Reason: CIWA-Ar 8-15 Lorazepam (Ativan) 4 mg IV Q1H PRN PRN Reason: CIWA-Ar 16-25 Magnesium Hydroxide (Milk Of Magnesia) 30 ml PO Q4H PRN PRN Reason: Constipation Ondansetron HCl (Zofran) 4 mg IV Q8H PRN PRN Reason: N/V unrelieved by Reglan Oxycodone/Acetaminophen (Percocet 5/325) 1 tab PO Q6H PRN PRN Reason: Pain, Moderate (4-6) Physical Examination Vital Signs Pulse Resp Pulse Ox 101 H 26 H 100 12/11/16 13:13 12/11/16 13:13 12/11/16 13:13 Results 12/11/16 15:20 12/11/16 13:14
[2016-12-12] MEDS: LIDOCAINE VISCOUS 2% PO PRN (18:03)
--- NOTE | 2016-12-12 18:35 | Magnetic Resonance Report ---
FINAL REPORT EXAM: MR BRAIN WO/W CON HISTORY: ? seizure TECHNIQUE: Multi sequence multi planar MR images obtained of the brain prior to and following intravenous administration of 12 milliliters MultiHance contrast PRIORS: None. FINDINGS: There is no mass effect or midline shift. There are no abnormal intra or extra-axial fluid collections. Cortical sulci and lateral ventricles are normal in size and configuration. The brainstem and cerebellum appear within normal limits. There are no abnormal hyper or hypo intense parenchymal lesions seen in T1 or T2 weighted sequences. Diffusion-weighted imaging does not show definite evidence of acute or subacute infarct. There are flow voids indicating patency seen in the major vascular structures. No abnormal enhancing lesions are seen following contrast administration. Orbits appear normal and symmetric. Mucosal thickening is seen in the right maxillary sinus. The craniocervical junction appears normal. IMPRESSION: 1. No abnormal mass or focal brain lesion is identified. 2. No abnormal enhancing lesions are seen following contrast administration.
--- NOTE | 2016-12-12 18:36 | Progress Note ---
Assessment and Plan Assessment and plan: 1. Recurrent syncope Outpatient cardiac workup performed Admitted to telemetry and no arrhythmia noted BP borderline low Possible secondary to orthostatic hypotension - will check orthostatics Cardiology following 2. ?Seizure CT head with no acute abnormality Electrolytes, TSH, Ft4 within normal limits Neurology consulted and additional workup in progress (brain MRI/EEG) 3. Transaminitis Hepatitis panel negative Monitor 4. Rhabdomyolysis With preserved renal function Monitor CPK 5. UTI UA suggestive of UTI and started on Rocephin on admission 6. Drug abuse UDS positive for marijuana Counseled regarding importance of quitting 7. DVT prophylaxis History Interval history: feeling well this morning, with no complaints mother present, updated Hospitalist Physical - Constitutional Vitals: Temp Pulse Resp BP Pulse Ox 99.1 F 72 18 101/60 99 12/12/16 17:30 12/12/16 17:30 12/12/16 17:30 12/12/16 17:30 12/12/16 17:30 General appearance: Present: no acute distress, well-nourished - EENT Eyes: Present: PERRL, EOM intact. Absent: scleral icterus, conjunctival injection - Neck Neck: Present: supple, normal ROM. Absent: masses or JVD - Respiratory Respiratory effort: normal Respiratory: bilateral: CTA, negative: rhonchi, wheezing - Cardiovascular Rhythm: regular Heart Sounds: Present: S1 & S2. Absent: systolic murmur - Extremities Extremities: no ischemia - Abdominal General gastrointestinal: soft, non-tender, non-distended, normal bowel sounds - Integumentary Integumentary: Present: warm, dry. Absent: jaundice, rash - Psychiatric Psychiatric: cooperative - Neurologic Neurologic: CNII-XII intact, no focal deficits Results - Labs CBC & Chem 7: 12/13/16 06:30 12/13/16 06:30 Labs: Laboratory Last Values WBC 10.3 K/mm3 (4.5-11.0) 12/11/16 15:20 RBC 3.61 M/mm3 (3.65-5.03) L 12/11/16 15:20 Hgb 11.5 gm/dl (10.1-14.3) 12/11/16 15:20 Hct 32.5 % (30.3-42.9) 12/11/16 15:20 MCV 90 fl (79-97) 12/11/16 15:20 MCH 32 pg (28-32) 12/11/16 15:20 MCHC 35 % (30-34) H 12/11/16 15:20 RDW 14.4 % (13.2-15.2) 12/11/16 15:20 Plt Count 206 K/mm3 (140-440) 12/11/16 15:20 Lymph % (Auto) 7.2 % (13.4-35.0) L 12/11/16 15:20 [place] % (Auto) 5.9 % (0.0-7.3) 12/11/16 15:20 Eos % (Auto) 0.2 % (0.0-4.3) 12/11/16 15:20 Baso % (Auto) 0.3 % (0.0-1.8) 12/11/16 15:20 Lymph # 0.7 K/mm3 (1.2-5.4) L 12/11/16 15:20 [place] # 0.6 K/mm3 (0.0-0.8) 12/11/16 15:20 Eos # 0.0 K/mm3 (0.0-0.4) 12/11/16 15:20 Baso # 0.0 K/mm3 (0.0-0.1) 12/11/16 15:20 Seg Neutrophils % 86.4 % (40.0-70.0) H 12/11/16 15:20 Seg Neutrophils # 8.9 K/mm3 (1.8-7.7) H 12/11/16 15:20 PT 14.4 Sec. (12.2-14.9) 12/11/16 15:20 INR 1.13 (0.87-1.13) 12/11/16 15:20 APTT < 20.0 Sec. (24.2-36.6) L 12/11/16 15:20 Chloride 101.6 mmol/L (98-107) 12/11/16 13:14 Carbon Dioxide 13 mmol/L (22-30) L 12/11/16 13:14 Anion Gap 30 mmol/L 12/11/16 13:14 BUN 12 mg/dL (7-17) 12/11/16 13:14 Creatinine 1.1 mg/dL (0.7-1.2) 12/11/16 13:14 Estimated GFR > 60 ml/min 12/11/16 13:14 BUN/Creatinine Ratio 10.90 % 12/11/16 13:14 Glucose 220 mg/dL (65-100) H 12/11/16 13:14 POC Glucose 78 (70-105) 12/12/16 17:25 Calcium 8.8 mg/dL (8.4-10.2) 12/11/16 13:14 Magnesium 1.90 mg/dL (1.7-2.3) 12/11/16 13:14 Total Bilirubin 0.90 mg/dL (0.1-1.2) 12/11/16 13:14 AST 143 units/L (5-40) H 12/11/16 13:14 ALT 82 units/L (7-56) H 12/11/16 13:14 Alkaline Phosphatase 74 units/L (35-129) 12/11/16 13:14 Total Creatine Kinase 588 units/L (30-135) H 12/11/16 13:14 CK-MB (CK-2) 4.4 ng/mL (0.0-4.0) H 12/11/16 13:14 CK-MB (CK-2) Rel Index 0.7 (0-4) 12/11/16 13:14 Troponin T < 0.010 ng/mL (0.00-0.029) 12/11/16 13:14 Total Protein 6.9 g/dL (6.3-8.2) 12/11/16 13:14 Albumin 4.2 g/dL (3.9-5) 12/11/16 13:14 Albumin/Globulin Ratio 1.6 % 12/11/16 13:14 TSH 1.520 mlU/mL (0.270-4.200) 12/11/16 13:50 Free T4 1.15 ng/dL (0.76-1.46) 12/11/16 13:50 HCG, Qual Negative (Negative) 12/11/16 13:50 Urine Color Yellow (Yellow) 12/11/16 13:37 Urine Turbidity Slightly-cloudy (Clear) 12/11/16 13:37 Urine pH 6.0 (5.0-7.0) 12/11/16 13:37 Ur Specific [place] 1.020 (1.003-1.030) 12/11/16 13:37 Urine Protein >500 mg/dL (Negative) 12/11/16 13:37 Urine Glucose (UA) 50 mg/dL (Negative) 12/11/16 13:37 Urine Ketones Tr mg/dL (Negative) 12/11/16 13:37 Urine Blood Sm (Negative) 12/11/16 13:37 Urine Nitrite Neg (Negative) 12/11/16 13:37 Urine Bilirubin Neg (Negative) 12/11/16 13:37 Urine Urobilinogen 2.0 mg/dL (<2.0) 12/11/16 13:37 Ur Leukocyte Esterase Neg (Negative) 12/11/16 13:37 Urine WBC (Auto) 26.0 /HPF (0.0-6.0) H 12/11/16 13:37 Urine RBC (Auto) 11.0 /HPF (0.0-6.0) 12/11/16 13:37 U Epithel Cells (Auto) 5.0 /HPF (0-13.0) 12/11/16 13:37 Urine Bacteria (Auto) 1+ /HPF (Negative) 12/11/16 13:37 Urine Mucus 2+ /HPF 12/11/16 13:37 Urine Opiates Screen Presumptive negative 12/11/16 13:37 Urine Methadone Screen Presumptive negative 12/11/16 13:37 Ur Barbiturates Screen Presumptive negative 12/11/16 13:37 Ur Phencyclidine Scrn Presumptive negative 12/11/16 13:37 Ur Amphetamines Screen Presumptive negative 12/11/16 13:37 U Benzodiazepines Scrn Presumptive negative 12/11/16 13:37 Urine Cocaine Screen Presumptive negative 12/11/16 13:37 U Marijuana (THC) Screen Presumptive positive 12/11/16 13:37 Drugs of Abuse Note Disclamer 12/11/16 13:37 Plasma/Serum Alcohol < 0.01 gm% (0-0.07) 12/11/16 13:15 Hepatitis A IgM Ab Non-reactive (NonReactive) 12/11/16 13:50 Hep B Core IgM Ab Non-reactive (NonReactive) 12/11/16 13:50 Hepatitis C Antibody Non-reactive (NonReactive) 12/11/16 13:50 - Imaging and Cardiology CT Scan - head: report reviewed
--- NOTE | 2016-12-12 18:54 | Event Note ---
Date: 12/12/16 PATIENT'S ECHO SHOWS A DILATED CARDIOMYOPATHY WITH SEVERE LV SYSTOLIC DYSFUNCTION, EF ~20-25%. I AM UNCERTAIN IF THE CMP IS NEW OR WAS PRESENT ON PRIOR CARDIAC OUTPATIENT ASSESSMENTS-WE WILL REQUEST STUDY REPORTS. SYNCOPE IN SETTING OF A SEVERE CMP WARRANTS A GREATER CONCERN FOR CARDIOGENIC SYNCOPE-WE WILL COMMENCE AGGRESSIVE CARDIAC WORKUP AND MANAGEMENT.
[2016-12-13] MEDS: D5NS 1,000 ML IV SCH ×2 (01:43→16:22)
[2016-12-13 07:13] LABS: Basophils % (Auto) 0.8 % (0.0-1.8); Eosinophils % (Auto) 3.4 % (0.0-4.3); Hematocrit 30.1 % (30.3-42.9); Hemoglobin 10.2 gm/dl (10.1-14.3); Mean Corpuscular HGB Conc 34 % (30-34); Mean Corpuscular Hemoglobin 30 pg (28-32); Mean Corpuscular Volume 89 fl (79-97); Platelet Count 182 K/mm3 (140-440); Red Blood Count 3.38 M/mm3 (3.65-5.03); Red Cell Distribution Width 13.8 % (13.2-15.2); White Blood Count 3.5 K/mm3 (4.5-11.0)
[2016-12-13 07:27] LABS: Alanine Aminotransferase 44 units/L (7-56); Albumin 3.2 g/dL (3.9-5); Albumin/Globulin Ratio 1.4 %; Alkaline Phosphatase 49 units/L (35-129); BUN/Creatinine Ratio 4.28; Blood Urea Nitrogen 3 mg/dL (7-17); Calcium 7.9 mg/dL (8.4-10.2); Carbon Dioxide 23 mmol/L (22-30); Chloride 110.6 mmol/L (98-107); Glucose 97 mg/dL (65-100); Potassium 3.4 mmol/L (3.6-5.0); Sodium 144 mmol/L (137-145); Total Protein 5.5 g/dL (6.3-8.2)
[2016-12-13 07:44] LABS: Anion Gap 14 mmol/L; Creatine Kinase 4183 units/L (30-135)
--- NOTE | 2016-12-13 09:07 | Progress Note ---
Assessment and Plan Syncope Possible seizures Takotsubo Cardiomyopathy Outpt Cardiac MRI 10/2016: No evidence myocardial scarring or fibrosis. Normal perfusion, EF 57%. Echo this admission demonstrates a decrease left ventricular systolic function, EF 20-25%. Recommendations: HIV antibodies Afterload reduction, beta blockers, aldactone for takotsubo type cardiomyopathy if BP will allow. Lifevest before discharge. Subjective Date of service: 12/13/16 Interval history: Patient is resting in bed. She has no complaints. No arrhythmias on telemetry overnight. Objective Vital Signs Temp Pulse Resp BP Pulse Ox 12/13/16 08:00 97.9 F 54 L 16 98/56 97 12/13/16 04:00 98.8 F 60 18 98/55 100 12/12/16 20:00 98.9 F 64 18 88/50 100 12/12/16 17:30 99.1 F 72 18 101/60 99 12/12/16 12:12 98.8 F 58 L 18 83/44 99 - Labs and Meds Cardiac Enzymes 12/13/16 Range/Units 06:30 AST 58 H (5-40) units/L CBC 12/13/16 Range/Units 06:30 WBC 3.5 L (4.5-11.0) K/mm3 RBC 3.38 L (3.65-5.03) M/mm3 Hgb 10.2 (10.1-14.3) gm/dl Hct 30.1 L (30.3-42.9) % Plt Count 182 (140-440) K/mm3 Lymph # 1.7 (1.2-5.4) K/mm3 [place] # 0.3 (0.0-0.8) K/mm3 Eos # 0.1 (0.0-0.4) K/mm3 Baso # 0.0 (0.0-0.1) K/mm3 Comprehensive Metabolic Panel 12/13/16 Range/Units 06:30 Sodium 144 (137-145) mmol/L Potassium 3.4 L (3.6-5.0) mmol/L Chloride 110.6 H (98-107) mmol/L Carbon Dioxide 23 D (22-30) mmol/L BUN 3 L (7-17) mg/dL Creatinine 0.7 (0.7-1.2) mg/dL Glucose 97 (65-100) mg/dL Calcium 7.9 L (8.4-10.2) mg/dL AST 58 H (5-40) units/L ALT 44 (7-56) units/L Alkaline Phosphatase 49 (35-129) units/L Total Protein 5.5 L D (6.3-8.2) g/dL Albumin 3.2 L (3.9-5) g/dL
--- NOTE | 2016-12-13 09:32 | Progress Note ---
Assessment and Plan Assessment and plan: 1. Recurrent syncope ECHO revealed severely dilated cardiomyopathy with EF 20-25%, mild MR and TR, no LVH and no pulm HTN Diff - viral vs drug induced vs ischemic (less likely given her age) Cardiology comparing outpatient work up with these finding to determine acuity; most likely will require additional testing and management 2. Acute systolic/diastolic heart failure see above discussion 3. ?Seizure CT head with no acute abnormality Electrolytes, TSH, Ft4 within normal limits Neurology consulted and additional workup ordered - MRI normal, EEG pending Most likely symptoms were due to #1 4. Transaminitis Hepatitis panel negative Trending down 5. Rhabdomyolysis With preserved renal function, but CPK trending up Caution with ivf given heart failure 6. UTI UA suggestive of UTI and started on Rocephin on admission 7. Hypokalemia Mild, monitor 8. Drug abuse UDS positive for marijuana Denies use of other drugs Counseled regarding importance of quitting 9. DVT prophylaxis History Interval history: no events overnight Hospitalist Physical - Constitutional Vitals: Temp Pulse Resp BP Pulse Ox 97.9 F 54 L 16 98/56 97 12/13/16 08:00 12/13/16 08:00 12/13/16 08:00 12/13/16 08:00 12/13/16 08:00 General appearance: Present: no acute distress - EENT Eyes: Present: PERRL, EOM intact. Absent: scleral icterus, conjunctival injection - Neck Neck: Present: supple, normal ROM. Absent: masses or JVD - Respiratory Respiratory effort: normal Respiratory: bilateral: CTA, negative: rhonchi, wheezing - Cardiovascular Rhythm: regular (with intermittent bradycardia) Heart Sounds: Present: S1 & S2. Absent: systolic murmur - Extremities Extremities: no ischemia - Abdominal General gastrointestinal: soft, non-tender, non-distended, normal bowel sounds - Psychiatric Psychiatric: cooperative - Neurologic Neurologic: CNII-XII intact, no focal deficits Results - Labs CBC & Chem 7: 12/13/16 06:30 12/13/16 06:30 Labs: Laboratory Last Values WBC 3.5 K/mm3 (4.5-11.0) L 12/13/16 06:30 RBC 3.38 M/mm3 (3.65-5.03) L 12/13/16 06:30 Hgb 10.2 gm/dl (10.1-14.3) 12/13/16 06:30 Hct 30.1 % (30.3-42.9) L 12/13/16 06:30 MCV 89 fl (79-97) 12/13/16 06:30 MCH 30 pg (28-32) 12/13/16 06:30 MCHC 34 % (30-34) 12/13/16 06:30 RDW 13.8 % (13.2-15.2) 12/13/16 06:30 Plt Count 182 K/mm3 (140-440) 12/13/16 06:30 Lymph % (Auto) 48.2 % (13.4-35.0) H 12/13/16 06:30 [place] % (Auto) 8.2 % (0.0-7.3) H 12/13/16 06:30 Eos % (Auto) 3.4 % (0.0-4.3) 12/13/16 06:30 Baso % (Auto) 0.8 % (0.0-1.8) 12/13/16 06:30 Lymph # 1.7 K/mm3 (1.2-5.4) 12/13/16 06:30 [place] # 0.3 K/mm3 (0.0-0.8) 12/13/16 06:30 Eos # 0.1 K/mm3 (0.0-0.4) 12/13/16 06:30 Baso # 0.0 K/mm3 (0.0-0.1) 12/13/16 06:30 Seg Neutrophils % 39.4 % (40.0-70.0) L 12/13/16 06:30 Seg Neutrophils # 1.4 K/mm3 (1.8-7.7) L 12/13/16 06:30 PT 14.4 Sec. (12.2-14.9) 12/11/16 15:20 INR 1.13 (0.87-1.13) 12/11/16 15:20 APTT < 20.0 Sec. (24.2-36.6) L 12/11/16 15:20 Sodium 144 mmol/L (137-145) 12/13/16 06:30 Potassium 3.4 mmol/L (3.6-5.0) L 12/13/16 06:30 Chloride 110.6 mmol/L (98-107) H 12/13/16 06:30 Carbon Dioxide 23 mmol/L (22-30) D 12/13/16 06:30 Anion Gap 14 mmol/L 12/13/16 06:30 BUN 3 mg/dL (7-17) L 12/13/16 06:30 Creatinine 0.7 mg/dL (0.7-1.2) 12/13/16 06:30 Estimated GFR > 60 ml/min 12/13/16 06:30 BUN/Creatinine Ratio 4.28 % 12/13/16 06:30 Glucose 97 mg/dL (65-100) 12/13/16 06:30 POC Glucose 78 (70-105) 12/12/16 17:25 Calcium 7.9 mg/dL (8.4-10.2) L 12/13/16 06:30 Magnesium 1.90 mg/dL (1.7-2.3) 12/11/16 13:14 Total Bilirubin 0.40 mg/dL (0.1-1.2) 12/13/16 06:30 AST 58 units/L (5-40) H 12/13/16 06:30 ALT 44 units/L (7-56) 12/13/16 06:30 Alkaline Phosphatase 49 units/L (35-129) 12/13/16 06:30 Total Creatine Kinase 4183 units/L (30-135) H 12/13/16 06:30 CK-MB (CK-2) 4.4 ng/mL (0.0-4.0) H 12/11/16 13:14 CK-MB (CK-2) Rel Index 0.7 (0-4) 12/11/16 13:14 Troponin T < 0.010 ng/mL (0.00-0.029) 12/11/16 13:14 Total Protein 5.5 g/dL (6.3-8.2) L D 12/13/16 06:30 Albumin 3.2 g/dL (3.9-5) L 12/13/16 06:30 Albumin/Globulin Ratio 1.4 % 12/13/16 06:30 TSH 1.520 mlU/mL (0.270-4.200) 12/11/16 13:50 Free T4 1.15 ng/dL (0.76-1.46) 12/11/16 13:50 HCG, Qual Negative (Negative) 12/11/16 13:50 Urine Color Yellow (Yellow) 12/11/16 13:37 Urine Turbidity Slightly-cloudy (Clear) 12/11/16 13:37 Urine pH 6.0 (5.0-7.0) 12/11/16 13:37 Ur Specific [place] 1.020 (1.003-1.030) 12/11/16 13:37 Urine Protein >500 mg/dL (Negative) 12/11/16 13:37 Urine Glucose (UA) 50 mg/dL (Negative) 12/11/16 13:37 Urine Ketones Tr mg/dL (Negative) 12/11/16 13:37 Urine Blood Sm (Negative) 12/11/16 13:37 Urine Nitrite Neg (Negative) 12/11/16 13:37 Urine Bilirubin Neg (Negative) 12/11/16 13:37 Urine Urobilinogen 2.0 mg/dL (<2.0) 12/11/16 13:37 Ur Leukocyte Esterase Neg (Negative) 12/11/16 13:37 Urine WBC (Auto) 26.0 /HPF (0.0-6.0) H 12/11/16 13:37 Urine RBC (Auto) 11.0 /HPF (0.0-6.0) 12/11/16 13:37 U Epithel Cells (Auto) 5.0 /HPF (0-13.0) 12/11/16 13:37 Urine Bacteria (Auto) 1+ /HPF (Negative) 12/11/16 13:37 Urine Mucus 2+ /HPF 12/11/16 13:37 Urine Opiates Screen Presumptive negative 12/11/16 13:37 Urine Methadone Screen Presumptive negative 12/11/16 13:37 Ur Barbiturates Screen Presumptive negative 12/11/16 13:37 Ur Phencyclidine Scrn Presumptive negative 12/11/16 13:37 Ur Amphetamines Screen Presumptive negative 12/11/16 13:37 U Benzodiazepines Scrn Presumptive negative 12/11/16 13:37 Urine Cocaine Screen Presumptive negative 12/11/16 13:37 U Marijuana (THC) Screen Presumptive positive 12/11/16 13:37 Drugs of Abuse Note Disclamer 12/11/16 13:37 Plasma/Serum Alcohol < 0.01 gm% (0-0.07) 12/11/16 13:15 Hepatitis A IgM Ab Non-reactive (NonReactive) 12/11/16 13:50 Hep B Core IgM Ab Non-reactive (NonReactive) 12/11/16 13:50 Hepatitis C Antibody Non-reactive (NonReactive) 12/11/16 13:50 - Imaging and Cardiology MRI - head: report reviewed (normal)
[2016-12-13] MEDS: ROCEPHIN/NS 2 GM/100 ML 2 GM/100 ML BAG IV SCH (09:41)
[2016-12-13] MEDS: LOVENOX SUB-Q SCH (09:41)
[2016-12-13] MEDS: PEPCID PO SCH ×2 (09:42→21:00)
--- NOTE | 2016-12-13 11:29 | Electroencephalogram Report ---
Electroencephalogram EEG Date of exam: 12/12/16 History: 26 YO F Hx recurrent syncope. Impression: Normal awake and sleep 20 minute routine EEG. There are no findings to suggest cerebral dysfunction, cortical irritability, epileptiform discharges or electrographic seizures. Please note however that a normal EEG does not completely exclude a clinical diagnosis of epilepsy. Description: The waking background shows an appropriate organization with well-defined anterior posterior voltage and frequency gradients. Posteriorly, there is a well -developed alpha rhythm of 8-9 Hz which is symmetrical and bilaterally reactive. Anteriorly, there is a pattern of lower voltage and slightly irregular theta and beta range frequencies. During drowsiness, there is attenuation of the background rhythms. The sleep background shows normal organization with well-formed sleep spindles and vertex waves which are synchronous and symmetrical. Throughout, the recording there are no epileptiform abnormalities, focal or lateralizing features, or significant interhemispheric findings. Interpretation: This is a digitally acquired 21-channel electroencephalogram. Both bipolar and referential montages were used in interpretation. Electrodes were placed in accordance with the International 10-20 system.
[2016-12-13] MEDS: KEPPRA 750 MG in D5W 100 ML IV SCH ×2 (12:15→21:00)
[2016-12-13] MEDS: K-DUR PO SCH ×2 (12:17→23:52)
--- NOTE | 2016-12-13 12:19 | Progress Note ---
Assessment and Plan 26 YO F Hx recurrent syncope thought to be CV in origin as classic presyncopal syndrome but who p/w episode of LOC while on toilet / @ 12:30 PM assoc w/ some AMS and motor convulsive activity w/ tongue bite suggestive of possible seizure. Pt has no seizure risk factors otherwise. Neuro exam nonfocal intact w /o deficits. CTH/CDs/MRI Brain +/- [place]/EEG all normal. Plan and Recommendation: 1. Telemetry bed w/ Q4 hour neuro checks & Sz precautions 2. Labs: Serum/Urine Tox, UA/UCx, Electrolytes especially Na, Ca, Mg, and Glucose, TSH/Vit B12/Ammonia and correct as necessary 3. Cont Infectious work up/medical management for UTI, PNA, cellulitis, bacteremia, etc. 4. Avoid hyponatremia, hypo/hyper-calcemia, hypo/hyperglycemia, acidosis, hypoxia/hypoxemia, hypercarbia/hypercapnia 5. Avoid institution of any psychoactive medications (e.g. antihistamines, anticholinergics, BZD, hypnotics, opiates) as able unless low doses of low potency antipsychotic needed for behavioral issues complicating medical care 6. AED therapy: can continue Keppra 750mg BID for now as already started 7. Avoid meds that can lower sz threshold e.g. Tramadol, fluroquinolones, carbapenems 8. Pt advised of [place] driving regulations: report date of presumed Seizure/ unexplained loss of consciousness/awareness spell to [facility], refrain from operating a motor vehicle for 6 months after this date, and avoid unsupervised activity particularly around water or heights 9. f/u outpt neurologist 10. no neurologic contraindication to discharge if remains clinically stable and recurrent event free Subjective Date of service: 12/13/16 Principal diagnosis: syncope, convulsion Interval history: no recurrent events, completed imaging.EEG Objective - Vital Sign Vital Signs - 12hr 12/13/16 12/13/16 04:00 08:00 Temperature 98.8 F 97.9 F Pulse Rate [ 60 54 L Left Radial] Respiratory 18 16 Rate Blood Pressure 98/55 98/56 [Left Arm] O2 Sat by Pulse 100 97 Oximetry - General Apperance Constitutional: comfortable - EENT EENT: ATNC, PERRL, mucous membranes moist, hearing intact, vision intact - Respiratory Respiratory: chest non-tender, normal breath sounds, no respiratory distress - Cardiovascular Cardiovascular: regular rate Extremities: no peripheral edema bilat, no clubbing, cyanosis, no inflammation, no ischemia or petechiae - Gastrointestinal Gastrointestinal: normoactive bowel sounds, soft, non-distended - Integumentary Integumentary: normal - Neurologic Cranial nerve examination: PERRL, EOMI, VFF, V1/V2/V3 grossly intact, face symmetric, tongue midline, intact, intact shoulder shrug, Intact Vestibulo- ocular r, intact corneal reflex, normal palatal elevation Speech examination: intact Detailed motor examination: full strength in all sammy Motor examination - right side: 5/5: biceps, triceps, wrist flexion, wrist extension, operator maintainer, hip flexors, knee extensors, dorsiflexion, toe extension (EHL) , plantarflexion Motor examination - left side: 5/5: biceps, triceps, wrist flexion, wrist extension, operator maintainer, hip flexors, knee extensors, dorsiflexion, toe extension (EHL) , plantarflexion Detailed sensory examination: intact Reflex and gait examination: intact Reflexes: 2+: ankle, bicep, knee, tricep - Musculoskeletal Musculoskeletal: no fluid collection, no pain, normal range of motion - Psychiatric Psychiatric: mood/affect appropriate, cooperative - Laboratory Findings CBC and BMP: 12/13/16 06:30 12/13/16 06:30 Abnormal Lab Findings: Abnormal Labs 12/13/16 12/13/16 06:30 06:30 WBC 3.5 L RBC 3.38 L Hct 30.1 L Lymph % (Auto) 48.2 H [place] % (Auto) 8.2 H Seg Neutrophils % 39.4 L Seg Neutrophils # 1.4 L Potassium 3.4 L Chloride 110.6 H BUN 3 L Calcium 7.9 L AST 58 H Total Creatine Kinase 4183 H Total Protein 5.5 L D Albumin 3.2 L
[2016-12-13] MEDS: ZESTRIL PO SCH (12:29)
[2016-12-13] MEDS ORDERED: MAGNESIUM SULFATE 2GM/50ML 2 GM/50 ML BAG IV ONE (13:00)
[2016-12-13] MEDS: LIDOCAINE VISCOUS 2% PO PRN (15:14)
[2016-12-13] MEDS: LOPRESSOR PO SCH ×2 (15:16→21:02)
[2016-12-13 15:22] LABS: HIV-1 Antigen p24 Non React (Non React); HIVR-1/2 Ab Non React (Non React)
[2016-12-13] MEDS: PERCOCET 5/325 PO PRN (23:52)
[2016-12-14] MEDS: D5NS 1,000 ML IV SCH ×2 (03:57→14:48)
[2016-12-14 05:01] LABS: Anion Gap 15 mmol/L; BUN/Creatinine Ratio 3.33; Blood Urea Nitrogen 2 mg/dL (7-17); Calcium 7.8 mg/dL (8.4-10.2); Carbon Dioxide 21 mmol/L (22-30); Chloride 108.7 mmol/L (98-107); Glucose 91 mg/dL (65-100); Potassium 3.9 mmol/L (3.6-5.0); Sodium 141 mmol/L (137-145)
--- NOTE | 2016-12-14 09:48 | Progress Note ---
Assessment and Plan Assessment and plan: 1. Recurrent syncope ECHO revealed severely dilated cardiomyopathy with EF 20-25%, mild MR and TR, no LVH and no pulm HTN Outpatient workup included cardiac MRI at [place] that showed dilated LV but with EF 57% Cardiology consulted and considered that current ECHO is consistent with Takotsubo cardiomyopathy Started on low-dose BB and ACEI Plan for LifeVest prior to discharge Supportive care 2. Acute systolic/diastolic heart failure See above discussion 3. ?Seizure CT head with no acute abnormality Electrolytes, TSH, Ft4 within normal limits Neurology consulted and additional workup ordered - MRI normal, EEG with no epileptiform discharges Started on IV Keppra on admission; neurology recommended to continue AED; switched to po 4. Transaminitis Hepatitis panel negative Trending down 5. Rhabdomyolysis With preserved renal function, but CPK trending up (in 4000 range) Gentle hydration Monitor 6. UTI UA suggestive of UTI and started on Rocephin on admission (plan for short course of antibiotic) 7. Hypokalemia Mild, resolved 8. Drug abuse UDS positive for marijuana Denies use of other drugs Counseled regarding importance of quitting 9. DVT prophylaxis History Interval history: no complaints, doing well Hospitalist Physical - Constitutional Vitals: Temp Pulse Resp BP Pulse Ox 98.2 F 64 18 101/62 99 12/14/16 08:00 12/14/16 08:00 12/14/16 08:00 12/14/16 08:00 12/14/16 08:00 General appearance: Present: no acute distress - EENT Eyes: Present: PERRL, EOM intact. Absent: scleral icterus, conjunctival injection - Neck Neck: Present: supple. Absent: enlarged thyroid, masses or JVD - Respiratory Respiratory effort: normal Respiratory: bilateral: CTA, negative: rhonchi, wheezing - Cardiovascular Rhythm: regular Heart Sounds: Present: S1 & S2. Absent: systolic murmur - Extremities Extremities: no ischemia - Abdominal General gastrointestinal: soft, non-tender, non-distended, normal bowel sounds - Psychiatric Psychiatric: cooperative - Neurologic Neurologic: CNII-XII intact, no focal deficits Results - Labs CBC & Chem 7: 12/13/16 06:30 12/14/16 03:14 Labs: Laboratory Last Values WBC 3.5 K/mm3 (4.5-11.0) L 12/13/16 06:30 RBC 3.38 M/mm3 (3.65-5.03) L 12/13/16 06:30 Hgb 10.2 gm/dl (10.1-14.3) 12/13/16 06:30 Hct 30.1 % (30.3-42.9) L 12/13/16 06:30 MCV 89 fl (79-97) 12/13/16 06:30 MCH 30 pg (28-32) 12/13/16 06:30 MCHC 34 % (30-34) 12/13/16 06:30 RDW 13.8 % (13.2-15.2) 12/13/16 06:30 Plt Count 182 K/mm3 (140-440) 12/13/16 06:30 Lymph % (Auto) 48.2 % (13.4-35.0) H 12/13/16 06:30 [place] % (Auto) 8.2 % (0.0-7.3) H 12/13/16 06:30 Eos % (Auto) 3.4 % (0.0-4.3) 12/13/16 06:30 Baso % (Auto) 0.8 % (0.0-1.8) 12/13/16 06:30 Lymph # 1.7 K/mm3 (1.2-5.4) 12/13/16 06:30 [place] # 0.3 K/mm3 (0.0-0.8) 12/13/16 06:30 Eos # 0.1 K/mm3 (0.0-0.4) 12/13/16 06:30 Baso # 0.0 K/mm3 (0.0-0.1) 12/13/16 06:30 Seg Neutrophils % 39.4 % (40.0-70.0) L 12/13/16 06:30 Seg Neutrophils # 1.4 K/mm3 (1.8-7.7) L 12/13/16 06:30 PT 14.4 Sec. (12.2-14.9) 12/11/16 15:20 INR 1.13 (0.87-1.13) 12/11/16 15:20 APTT < 20.0 Sec. (24.2-36.6) L 12/11/16 15:20 Sodium 141 mmol/L (137-145) 12/14/16 03:14 Potassium 3.9 mmol/L (3.6-5.0) 12/14/16 03:14 Chloride 108.7 mmol/L (98-107) H 12/14/16 03:14 Carbon Dioxide 21 mmol/L (22-30) L 12/14/16 03:14 Anion Gap 15 mmol/L 12/14/16 03:14 BUN 2 mg/dL (7-17) L 12/14/16 03:14 Creatinine 0.6 mg/dL (0.7-1.2) L 12/14/16 03:14 Estimated GFR > 60 ml/min 12/14/16 03:14 BUN/Creatinine Ratio 3.33 % 12/14/16 03:14 Glucose 91 mg/dL (65-100) 12/14/16 03:14 POC Glucose 78 (70-105) 12/12/16 17:25 Calcium 7.8 mg/dL (8.4-10.2) L 12/14/16 03:14 Magnesium 1.90 mg/dL (1.7-2.3) 12/14/16 03:14 Total Bilirubin 0.40 mg/dL (0.1-1.2) 12/13/16 06:30 AST 58 units/L (5-40) H 12/13/16 06:30 ALT 44 units/L (7-56) 12/13/16 06:30 Alkaline Phosphatase 49 units/L (35-129) 12/13/16 06:30 Total Creatine Kinase 4183 units/L (30-135) H 12/13/16 06:30 CK-MB (CK-2) 4.4 ng/mL (0.0-4.0) H 12/11/16 13:14 CK-MB (CK-2) Rel Index 0.7 (0-4) 12/11/16 13:14 Troponin T < 0.010 ng/mL (0.00-0.029) 12/11/16 13:14 Total Protein 5.5 g/dL (6.3-8.2) L D 12/13/16 06:30 Albumin 3.2 g/dL (3.9-5) L 12/13/16 06:30 Albumin/Globulin Ratio 1.4 % 12/13/16 06:30 TSH 1.520 mlU/mL (0.270-4.200) 12/11/16 13:50 Free T4 1.15 ng/dL (0.76-1.46) 12/11/16 13:50 HCG, Qual Negative (Negative) 12/11/16 13:50 Urine Color Yellow (Yellow) 12/11/16 13:37 Urine Turbidity Slightly-cloudy (Clear) 12/11/16 13:37 Urine pH 6.0 (5.0-7.0) 12/11/16 13:37 Ur Specific [place] 1.020 (1.003-1.030) 12/11/16 13:37 Urine Protein >500 mg/dL (Negative) 12/11/16 13:37 Urine Glucose (UA) 50 mg/dL (Negative) 12/11/16 13:37 Urine Ketones Tr mg/dL (Negative) 12/11/16 13:37 Urine Blood Sm (Negative) 12/11/16 13:37 Urine Nitrite Neg (Negative) 12/11/16 13:37 Urine Bilirubin Neg (Negative) 12/11/16 13:37 Urine Urobilinogen 2.0 mg/dL (<2.0) 12/11/16 13:37 Ur Leukocyte Esterase Neg (Negative) 12/11/16 13:37 Urine WBC (Auto) 26.0 /HPF (0.0-6.0) H 12/11/16 13:37 Urine RBC (Auto) 11.0 /HPF (0.0-6.0) 12/11/16 13:37 U Epithel Cells (Auto) 5.0 /HPF (0-13.0) 12/11/16 13:37 Urine Bacteria (Auto) 1+ /HPF (Negative) 12/11/16 13:37 Urine Mucus 2+ /HPF 12/11/16 13:37 Urine Opiates Screen Presumptive negative 12/11/16 13:37 Urine Methadone Screen Presumptive negative 12/11/16 13:37 Ur Barbiturates Screen Presumptive negative 12/11/16 13:37 Ur Phencyclidine Scrn Presumptive negative 12/11/16 13:37 Ur Amphetamines Screen Presumptive negative 12/11/16 13:37 U Benzodiazepines Scrn Presumptive negative 12/11/16 13:37 Urine Cocaine Screen Presumptive negative 12/11/16 13:37 U Marijuana (THC) Screen Presumptive positive 12/11/16 13:37 Drugs of Abuse Note Disclamer 12/11/16 13:37 Plasma/Serum Alcohol < 0.01 gm% (0-0.07) 12/11/16 13:15 Hepatitis A IgM Ab Non-reactive (NonReactive) 12/11/16 13:50 Hep B Core IgM Ab Non-reactive (NonReactive) 12/11/16 13:50 Hepatitis C Antibody Non-reactive (NonReactive) 12/11/16 13:50 HIV 1&2 Antibody Rapid Non react (Non React) 12/13/16 13:31 HIV P24 Antigen Non react (Non React) 12/13/16 13:31
[2016-12-14] MEDS: ROCEPHIN/NS 2 GM/100 ML 2 GM/100 ML BAG IV SCH (11:06)
[2016-12-14] MEDS: LOPRESSOR PO SCH ×2 (11:06→22:08)
[2016-12-14] MEDS: LOVENOX SUB-Q SCH (11:07)
[2016-12-14] MEDS: ZESTRIL PO SCH (11:08)
[2016-12-14] MEDS: KEPPRA PO SCH ×2 (11:10→22:09)
[2016-12-14] MEDS: BABY ASPIRIN PO SCH (11:11)
[2016-12-14] MEDS: PEPCID PO SCH ×2 (11:11→22:09)
--- NOTE | 2016-12-14 11:58 | Progress Note ---
Assessment and Plan - Patient Problems (1) Syncope Current Visit: Yes Status: Acute Qualifiers: Syncope type: S Encounter type: E Plan to address problem: Patient with syncope and a dilated cardiomyopathy, ejection fraction 20-25%. She is stable for cardiac discharge on the LifeVest, ARMEN inhibitor, beta blockers and baby aspirin. She is recommended to follow-up with Dr. Alfaro small equipment operator in one week after discharge. Subjective Date of service: 12/14/16 Principal diagnosis: syncope, convulsion Interval history: Patient is comfortable, she has LifeVest in place. No new cardiac complaints. Objective Vital Signs Temp Pulse Pulse Resp BP BP Pulse Ox 12/14/16 11:08 57 L 110/56 12/14/16 11:06 57 L 110/56 12/14/16 08:00 98.2 F 64 18 101/62 99 12/14/16 04:28 98.5 F 53 L 18 98/54 100 12/13/16 23:23 98.3 F 65 18 113/67 98 12/13/16 21:02 74 107/55 12/13/16 20:30 98.4 F 74 18 107/55 100 12/13/16 16:57 98.3 F 48 L 16 100/62 12/13/16 15:16 59 L 101/65 12/13/16 12:29 67 110/58 12/13/16 12:18 99 F 72 20 112/80 - Physical Examination General: No Apparent Distress HEENT: Positive: PERRL Neck: Positive: neck supple Cardiac: Positive: Reg Rate and Rhythm Lungs: Positive: clear to auscultation Neuro: Positive: Grossly Intact Abdomen: Positive: Soft Skin: Positive: Clear Extremities: Absent: edema - Labs and Meds Comprehensive Metabolic Panel 12/14/16 Range/Units 03:14 Sodium 141 (137-145) mmol/L Potassium 3.9 (3.6-5.0) mmol/L Chloride 108.7 H (98-107) mmol/L Carbon Dioxide 21 L (22-30) mmol/L BUN 2 L (7-17) mg/dL Creatinine 0.6 L (0.7-1.2) mg/dL Glucose 91 (65-100) mg/dL Calcium 7.8 L (8.4-10.2) mg/dL
[2016-12-14] MEDS: PERCOCET 5/325 PO PRN (14:42)
[2016-12-14] MEDS: NACL 0.9% 1000 ML 1,000 ML IV SCH (14:54)
[2016-12-14] MEDS ORDERED: K-DUR PO SCH (15:00)
[2016-12-14] MEDS: K-DUR PO SCH (17:48)
[2016-12-15] MEDS: PERCOCET 5/325 PO PRN (00:53)
[2016-12-15] MEDS: NACL 0.9% 1000 ML 1,000 ML IV SCH (03:34)
[2016-12-15 07:58] VITALS: BP 107/57
--- NOTE | 2016-12-15 08:29 | Discharge Summary ---
Providers - Providers Date of Admission: 12/11/16 22:22 Date of discharge: 12/15/16 Attending physician: NAPOLEON THIBODEAUX 12/11/16 22:35 Consult to Physician [CONS] Routine Consulting Provider: CONSTANCE STEIN Reason For Exam: Recurr syncope Place consult to:: DR. DENT Notified:: SHAN Blake Phone number called:: [phone] Was contact made?: Yes If yes, spoke with:: SHAN Blake Time called:: 09:30 Comment:: OCTAVIO NOTIFIED Consult to Physician [CONS] Routine Consulting Provider: JACKIE LAMBERT Reason For Exam: syncope/seizure Place consult to:: DR. LAMBERT Notified:: DR. LAMBERT Phone number called:: [phone] Was contact made?: Yes If yes, spoke with:: DR. LAMBERT Time called:: 09:28 Comment:: OCTAVIO NOTIFIED Primary care physician: ACCOUNTING SYSTEM [employer]PERT Hospitalization Reason for admission: syncope/questionable seizure activity Condition: Stable Pertinent studies: CT head Brain MRI EEG Echocardiogram Hospital course: Patient is a 26 years old -[place] female with multiple syncopal episodes in the last year; evaluated at [place] a few months ago and echocardiogram showed dilated LV but with EF between normal limits. Admitted here for another syncope with questionable seizure activity at that time. Repeat echocardiogram revealed severe dilated cardiomyopathy with EF 20-25%, mild MR and TR. Cardiology consulted and considered that current ECHO is consistent with Takotsubo cardiomyopathy. She was started on low-dose beta karan and ARMEN inhibitor and also had LifeVest. She is discharged in stable condition with close follow-up with cardiology. CT head/brain MRI with no acute abnormalities and EEG negative for epileptiform discharges, but neurology recommended to remain on AED therapy. Discharge diagnoses: 1. Recurrent syncope 2. Takotsubo cardiomyopathy 3. Acute systolic/diastolic heart failure 4. ?Seizure 4. Transaminitis 5. Rhabdomyolysis 6. UTI 7. Hypokalemia 8. Drug abuse Disposition: DISCHARGED TO HOME OR SELFCARE Time spent for discharge: 35 min Core Measure Documentation - Palliative Care Palliative Care/ Comfort Measures: Not Applicable - Core Measures Any of the following diagnoses?: heart failure - Heart Failure Discharge Requirements ARMEN/ARB for LVSD if EF <40%: Yes Beta karan at discharge: Yes Exam - Physical Exam Narrative exam: Patient seen and examined: - Constitutional Vitals: Temp Pulse Resp BP Pulse Ox 98.8 F 57 L 18 107/57 99 12/15/16 07:57 12/15/16 07:57 12/15/16 07:57 12/15/16 07:57 12/15/16 07:57 General appearance: Present: no acute distress, well-nourished - EENT Eyes: Present: PERRL, EOM intact. Absent: scleral icterus, conjunctival injection - Neck Neck: Present: supple, normal ROM. Absent: masses or JVD - Respiratory Respiratory effort: normal Respiratory: bilateral: CTA, negative: rhonchi, wheezing - Cardiovascular Rhythm: regular Heart Sounds: Present: S1 & S2. Absent: systolic murmur - Extremities Extremities: no ischemia - Abdominal General gastrointestinal: Present: soft, non-tender, non-distended, normal bowel sounds - Musculoskeletal Musculoskeletal: strength equal bilaterally - Psychiatric Psychiatric: cooperative - Neurologic Neurologic: CNII-XII intact, no focal deficits Plan Activity: advance as tolerated, no driving until cleared by PCP Diet: low cholesterol, low salt Follow up with: PRIMARY CAREMD [Primary Care Provider] - 3-5 Days AMY CRAIG MD [Staff Physician] - 7 Days Prescriptions: Aspirin [Aspirin BABY CHEW TAB] 81 mg PO QDAY #30 tab.chew levETIRAcetam [Keppra TAB] 500 mg PO BID #60 tablet Lisinopril [Zestril TAB] 2.5 mg PO QDAY #15 tablet Metoprolol [Lopressor TAB] 12.5 mg PO BID #15 tablet
[2016-12-15] MEDS: LOVENOX SUB-Q SCH (10:00)
[2016-12-15] MEDS: ROCEPHIN/NS 2 GM/100 ML 2 GM/100 ML BAG IV SCH (10:08)
[2016-12-15] MEDS: KEPPRA PO SCH (10:09)
[2016-12-15] MEDS: ZESTRIL PO SCH (10:10)
[2016-12-15] MEDS: LOPRESSOR PO SCH (10:11)
[2016-12-15] MEDS: PEPCID PO SCH (10:11)
[2016-12-15] MEDS: BABY ASPIRIN PO SCH (10:12)
--- NOTE | 2016-12-15 13:01 | Progress Note ---
Assessment and Plan - Patient Problems (1) Syncope Current Visit: Yes Status: Acute Qualifiers: Syncope type: S Encounter type: E Plan to address problem: Patient with syncope and a dilated cardiomyopathy, ejection fraction 20-25%. She is stable for cardiac discharge on the LifeVest, ARMEN inhibitor, beta blockers and baby aspirin. She is recommended to follow-up with Dr. Alfaro baker second in one week after discharge. Subjective Date of service: 12/15/16 Principal diagnosis: syncope, convulsion Interval history: Patient is comfortable, looks and feels well, no acute distress. LifeVest is in place, no cardiac complaints. Objective Vital Signs Temp Pulse Pulse Resp Resp BP BP 12/15/16 10:11 55 L 107/57 12/15/16 10:10 55 L 107/57 12/15/16 07:57 98.8 F 57 L 18 107/57 12/15/16 01:53 17 12/15/16 00:53 17 12/15/16 00:17 98.8 F 75 18 108/64 12/14/16 22:08 63 104/66 12/14/16 21:22 18 12/14/16 21:15 65 12/14/16 20:00 98.7 F 54 L 16 104/66 12/14/16 16:00 98.3 F 60 18 92/50 Pulse Ox 12/15/16 10:11 12/15/16 10:10 12/15/16 07:57 99 12/15/16 01:53 12/15/16 00:53 12/15/16 00:17 100 12/14/16 22:08 12/14/16 21:22 12/14/16 21:15 12/14/16 20:00 100 12/14/16 16:00 100 - Physical Examination General: No Apparent Distress HEENT: Positive: PERRL Neck: Positive: neck supple Cardiac: Positive: Reg Rate and Rhythm Lungs: Positive: clear to auscultation Neuro: Positive: Grossly Intact Abdomen: Positive: Soft Skin: Positive: Clear Extremities: Absent: edema
== END 2016-12-15 14:00 | disposition home or self-care (01) | DRG 100 ==
LOC: ED 13:09 → 3A 22:22
PROVIDERS: ADMIT Internal Medicine; ATTEND Internal Medicine
DX: G40.909 Epilepsy, unspecified, not intractable, without status epilepticus (principal); I50.41 Acute combined systolic (congestive) and diastolic (congestive) heart failure; N39.0 Urinary tract infection, site not specified; I51.81 Takotsubo syndrome; M62.82 Rhabdomyolysis; R41.82 Altered mental status, unspecified; E87.6 Hypokalemia; R74.0 Nonspecific elevation of levels of transaminase and lactic acid dehydrogenase [LDH]; I48.91 Unspecified atrial fibrillation; E16.2 Hypoglycemia, unspecified; F12.20 Cannabis dependence, uncomplicated
CPT/HCPCS: 36415; 70450; 70553; 80048; 80053; 80074; 80307; 80320; 81001; 82550; 82553; 82962; 83735; 84439; 84443; 84484; 84703; 85025; 85610; 85730; 87806; 93005; 93010; 93306; 93880; 95819; 96361; 96365; A9577; G0480; J0696; J1650; J1953; J3475; J7030; J7040; J7042

== ENCOUNTER 2020-06-04 15:47 | Emergency (ER) | payer MEDICAID ==
[2020-06-04] MEDS ORDERED: levETIRAcetam 1000 MG/NS 0.75% 1,000 MG/100 ML BAG IV ONE (16:56)
[2020-06-04 17:30] LABS: Basophils % (Auto) 0.5 % (0.0-1.8); Eosinophils # (Auto) 0.1 K/mm3 (0.0-0.4); Eosinophils % (Auto) 1.5 % (0.0-4.3); Hematocrit 37.8 % (30.3-42.9); Hemoglobin 12.7 gm/dl (10.1-14.3); Lymphocytes # (Auto) 1.3 K/mm3 (1.2-5.4); Lymphocytes % (Auto) 20.6 % (13.4-35.0); Mean Corpuscular HGB Conc 34 % (30-34); Mean Corpuscular Volume 94 fl (79-97); Monocytes # (Auto) 0.5 K/mm3 (0.0-0.8); Monocytes % (Auto) 8.2 % (0.0-7.3); Platelet Count 188 K/mm3 (140-440); Red Blood Count 4.02 M/mm3 (3.65-5.03); Red Cell Distribution Width 14.2 % (13.2-15.2)
[2020-06-04 17:49] LABS: BUN/Creatinine Ratio 10; Blood Urea Nitrogen 8 mg/dL (7-17); Calcium 9.4 mg/dL (8.4-10.2); Hemolysis Index 9
[2020-06-04 18:24] VITALS: BP 106/65
--- NOTE | 2020-06-04 18:37 | Emergency Department Report ---
ED Seizure HPI - General Chief Complaint: Seizure Stated Complaint: SEIZURES Time Seen by Provider: 06/04/20 16:54 Source: patient Mode of arrival: Stretcher Limitations: No Limitations - History of Present Illness Initial Comments: 29-year-old female with a past medical history of seizures and recurrent syncopal episodes, bradycardia, and history of Takotsubo cardiomyopathy presents to the hospital after having a seizure. Patient states she was told that she had 2 seizures. She was in the car with friends and felt tired and dizzy and then does not remember anything after that. Her friends reported shaking activity. Patient denies tongue biting or urinary incontinence. She currently denies headache, chest pain, shortness of breath, focal weakness, focal numbness, blurred vision. Patient states she last had a seizure several years ago. As per medical record review patient was admitted here in December 2016 for syncope and seizure and had a unremarkable CT head, MRI brain, carotid Dopplers, and EEG. She was discharged on Keppra 750 twice daily. Patient continues to follow-up with [facility] as an outpatient and as of now a pacemaker/defibrillator has not been recommended MD Complaint: seizure - Related Data Home Medications Medication Instructions Recorded Confirmed Last Taken Magnesium Oxide 400 mg PO DAILY 04/05/20 04/05/20 Unknown Previous Rx's Medication Instructions Recorded Last Taken Type lisinopriL [Zestril TAB] 2.5 mg PO QDAY #15 tablet 12/15/16 Unknown Rx levETIRAcetam [Keppra TAB] 500 mg PO BID #60 tablet 06/04/20 Unknown Rx Allergies Allergy/AdvReac Type Severity Reaction Status Date / Time No Known Allergies Allergy Verified 04/03/20 10:09 ED Review of Systems ROS: Stated complaint: SEIZURES Other details as noted in HPI Comment: All other systems reviewed and negative ED Past Medical Hx - Past Medical History Previous Medical History?: Yes Hx Hypertension: No Hx Heart Attack/AMI: No Hx Congestive Heart Failure: No Hx Diabetes: No Hx Deep Vein Thrombosis: No Hx Liver Disease: No Hx Renal Disease: No Hx Sickle Cell Disease: No Hx Seizures: Yes (no meds) Hx Asthma: No Hx COPD: No Hx HIV: No Additional medical history: Irregular heartbeat--a fib. bradycardia. anemia - Surgical History Hx Pacemaker: No Hx Internal Defibrillator: No - Social History Smoking Status: Never Smoker Substance Use Type: None - Medications Home Medications: Home Medications Medication Instructions Recorded Confirmed Last Taken Type lisinopriL [Zestril TAB] 2.5 mg PO QDAY #15 tablet 12/15/16 04/03/20 Unknown Rx Magnesium Oxide 400 mg PO DAILY 04/05/20 04/05/20 Unknown History levETIRAcetam [Keppra TAB] 500 mg PO BID #60 tablet 06/04/20 Unknown Rx ED Physical Exam - General Limitations: No Limitations - Other Other exam information: General: No acute distress Head: Atraumatic Eyes: normal appearance ENT: Moist mucous membranes Neck: Normal appearance, no midline tenderness Chest: Clear to auscultation bilaterally CV: Regular rate and rhythm Abdomen: Soft, normal bowel sounds, nontender, nondistended, no rebound or guarding Back: Normal inspection Extremity: Normal inspection, full range of motion Neuro: Alert O x 3, no facial asymmetry, speech clear, no gross motor sensory deficit Psych: Appropriate behavior Skin: No rash ED Course Vital Signs 06/04/20 06/04/20 06/04/20 16:38 16:45 16:49 Temperature 98.3 F Pulse Rate 59 L 51 L 55 L Respiratory 11 L 21 22 Rate Blood Pressure 111/62 Blood Pressure 111/62 [Right] O2 Sat by Pulse 100 100 Oximetry 06/04/20 06/04/20 06/04/20 17:00 17:15 17:31 Temperature Pulse Rate 56 L 46 L 63 Respiratory 8 L 23 12 Rate Blood Pressure 106/65 106/65 106/65 Blood Pressure [Right] O2 Sat by Pulse 100 100 Oximetry 06/04/20 06/04/20 06/04/20 17:45 18:01 18:15 Temperature Pulse Rate 55 L 48 L 58 L Respiratory 17 14 13 Rate Blood Pressure 106/65 106/65 106/65 Blood Pressure [Right] O2 Sat by Pulse 100 99 100 Oximetry ED Medical Decision Making - Lab Data Result diagrams: 06/04/20 17:04 06/04/20 17:04 Lab Results 06/04/20 06/04/20 06/04/20 Range/Units 17:04 17:04 17:04 WBC 6.4 (4.5-11.0) K/mm3 RBC 4.02 (3.65-5.03) M/mm3 Hgb 12.7 (10.1-14.3) gm/dl Hct 37.8 (30.3-42.9) % MCV 94 (79-97) fl MCH 32 (28-32) pg MCHC 34 (30-34) % RDW 14.2 (13.2-15.2) % Plt Count 188 (140-440) K/mm3 Lymph % (Auto) 20.6 (13.4-35.0) % Wagoner % (Auto) 8.2 H (0.0-7.3) % Eos % (Auto) 1.5 (0.0-4.3) % Baso % (Auto) 0.5 (0.0-1.8) % Lymph # (Auto) 1.3 (1.2-5.4) K/mm3 Wagoner # (Auto) 0.5 (0.0-0.8) K/mm3 Eos # (Auto) 0.1 (0.0-0.4) K/mm3 Baso # (Auto) 0.0 (0.0-0.1) K/mm3 Seg Neutrophils % 69.2 (40.0-70.0) % Seg Neutrophils # 4.5 (1.8-7.7) K/mm3 Sodium 141 (137-145) mmol/L Potassium 3.7 (3.6-5.0) mmol/L Chloride 105.1 (98-107) mmol/L Carbon Dioxide 23 (22-30) mmol/L Anion Gap 17 mmol/L BUN 8 (7-17) mg/dL Creatinine 0.8 (0.6-1.2) mg/dL Estimated GFR > 60 ml/min BUN/Creatinine Ratio 10 % Glucose 87 (65-100) mg/dL Calcium 9.4 (8.4-10.2) mg/dL Magnesium 2.00 (1.7-2.3) mg/dL HCG, Qual (Negative) Plasma/Serum Alcohol < 0.01 (0-0.07) % 06/04/ Range/Units 17:04 WBC (4.5-11.0) K/mm3 RBC (3.65-5.03) M/mm3 Hgb (10.1-14.3) gm/dl Hct (30.3-42.9) % MCV (79-97) fl MCH (28-32) pg MCHC (30-34) % RDW (13.2-15.2) % Plt Count (140-440) K/mm3 Lymph % (Auto) (13.4-35.0) % Wagoner % (Auto) (0.0-7.3) % Eos % (Auto) (0.0-4.3) % Baso % (Auto) (0.0-1.8) % Lymph # (Auto) (1.2-5.4) K/mm3 Wagoner # (Auto) (0.0-0.8) K/mm3 Eos # (Auto) (0.0-0.4) K/mm3 Baso # (Auto) (0.0-0.1) K/mm3 Seg Neutrophils % (40.0-70.0) % Seg Neutrophils # (1.8-7.7) K/mm3 Sodium (137-145) mmol/L Potassium (3.6-5.0) mmol/L Chloride (98-107) mmol/L Carbon Dioxide (22-30) mmol/L Anion Gap mmol/L BUN (7-17) mg/dL Creatinine (0.6-1.2) mg/dL Estimated GFR ml/min BUN/Creatinine Ratio % Glucose (65-100) mg/dL Calcium (8.4-10.2) mg/dL Magnesium (1.7-2.3) mg/dL HCG, Qual Negative (Negative) Plasma/Serum Alcohol (0-0.07) % - EKG Data -: EKG Interpreted by Me (pac's) EKG shows normal: sinus rhythm, ST-T waves (no stemi) Rate: bradycardia (48) - Medical Decision Making Patient in the ER with seizures with a past history of seizure activity. Not currently on seizure medication. Patient also has history of recurrent syncope. She was loaded with Keppra in the ED. Labs unremarkable. Patient plans to follow-up with her wraparound facilitator tomorrow and also encouraged to follow-up with neurology as outpatient. Critical Care Time: No Critical care attestation.: If time is entered above; I have spent that time in minutes in the direct care of this critically ill patient, excluding procedure time. ED Disposition Clinical Impression: Seizure Disposition: DC-01 TO HOME OR SELFCARE Is pt being admited?: No Does the pt Need Aspirin: No Condition: Stable Instructions: Recurrent Seizures Adult (ED) Additional Instructions: Take the medication as prescribed. Follow-up with your doctor or doctor/clinic provided. Return if symptoms worsen as indicated by your discharge instructions. Prescriptions: levETIRAcetam [Keppra TAB] 500 mg PO BID #60 tablet Referrals: ALISON RUIZ [Other] - 3-5 Days your, wraparound facilitator [Other] - 3-5 Days SAMUEL JUNIOR MD [Staff Physician] - 3-5 Days (neurology ) Time of Disposition: 19:15
== END 2020-06-04 19:45 | disposition home or self-care (01) ==
LOC: ED 15:47
DX: R56.9 Unspecified convulsions (principal); Z79.899 Other long term (current) drug therapy
CPT/HCPCS: 36415; 80048; 83735; 84703; 85025; 93005; 96374; 99284; J1953; 80320; G0480